=== PATIENT | female | born 1965 | race Caucasian/White ===

== ENCOUNTER → 2019-07-26 12:30 | Outpatient (BNVA) | payer MEDICARE, MEDICAID, SELFPAY | PROVIDERS: Family Provider Nurse Practitioner; PCP Nurse Practitioner; Visit Provider Specialist | DX: M54.2 Cervicalgia (principal); G43.909 Migraine, unspecified, not intractable, without status migrainosus; F31.0 Bipolar disorder, current episode hypomanic; F44.5 Conversion disorder with seizures or convulsions; F60.3 Borderline personality disorder; F17.210 Nicotine dependence, cigarettes, uncomplicated | CPT/HCPCS: 96372; 99215 ==

== ENCOUNTER 2019-08-06 14:37 | Outpatient (CLI) | payer MEDICARE, MEDICAID, SELFPAY ==
--- NOTE | 2019-08-06 14:00 | CT_ITS ---
WS: [id number] CT CERVICAL SPINE HISTORY: neck pain TECHNIQUE: Contiguous 2.5 mm axial imaging performed through the entire cervical spine. Sagittal and coronal reformats also performed. All CT scans at [facility] use at least one of these do se optimization techniques: automated exposure control; mA and/or kV adjustment per patient size (inc ludes targeted exams where dose is matched to clinical indication); or iterative reconstruction. DLP: 673.26 mGy.cm COMPARISON: 08/01/2015 Reversal of the normal cervical lordosis centered at C5. Could be positional or due to spasm. The dis c spaces are very minimally narrowed at C5-6 and C6-7. Small hypertrophic osteophytes from C4 to C7. No fractures. Facet joints are normally aligned. Craniocervical junction is normal. Lateral masses of C1 and C2 are aligned and the odontoid is intact. C2-C3: Very tiny central disc protrusion with no stenosis. C3-C4: Normal. C4-C5: Normal. C5-C6: Small LEFT foraminal osteophyte without stenosis. C6-C7: Vertebral body osteophytes. Very mild narrowing of the LEFT subarticular recess and foramen. C7-T1: Normal. Lung apices are clear. No thyroid nodules. Very small amount of mucoperiosteal thickening in the LEFT sphenoid sinus. Additional mucoperiosteal thickening in the floor the LEFT maxillary sinus is incomp letely visualized. CT/CT cervical spin wo con* [id number] IMPRESSION: 1. Reversal the normal cervical lordosis centered at C5. May be due to spasm o r positioning of the patient. 2. Minimal spondylitic changes, most significant at C5-6 and C6-7. 3. Mild narrowing of the LEFT subarticular recess and foramen at C6-7. 4. No cervical fracture.
== END 2019-08-06 14:38 | disposition home or self-care (01) ==
LOC: RAD 14:43
PROVIDERS: Family Provider Nurse Practitioner; PCP Nurse Practitioner; Visit Provider Specialist
DX: M47.892 Other spondylosis, cervical region (principal); M54.2 Cervicalgia
CPT/HCPCS: 72125

== ENCOUNTER → 2019-09-13 16:10 | Outpatient (BNVA) | payer MEDICARE, MEDICAID, SELFPAY | PROVIDERS: Family Provider Nurse Practitioner; PCP Nurse Practitioner; Visit Provider Nurse Practitioner | DX: R13.10 Dysphagia, unspecified (principal); E11.65 Type 2 diabetes mellitus with hyperglycemia | CPT/HCPCS: 80053; 80061; 81003; 83036; 84443 ==

== ENCOUNTER 2019-09-22 06:42 | Day surgery (SDC) | payer MEDICARE, MEDICAID, SELFPAY ==
[2019-09-21 08:04] VITALS: BMI 37.4
[2019-09-22 07:05] VITALS: BP 121/80; PULSE 101; RESP 16; TEMP 36.6; O2SAT 92
[2019-09-22] MEDS: sodium chloride 0.9% 1,000 ML 30 ML (07:22)
[2019-09-22 07:25] LABS: Glucose Point of Care 288 mg/dL (70-110)
--- NOTE | 2019-09-22 07:42 | ANES.PREANE2 ---
Pre-Anesthetic Assessment Pre-Anesthetic Assessment: Height/Weight: Height 1.63 m Weight 98.883 kg Temp Pulse Resp BP Pulse Ox 97.9 F 101 H 16 121/80 92 09/22/19 07:05 09/22/19 07:05 09/22/19 07:05 09/22/19 07:05 09/22/19 07:05 Preop Diagnosis: Difficulty in swallowing Proposed Procedure: Operation Date: 09/22/19 08:15 Proposed Procedures p EGD 64068 R13.10(Not Applicable) - Benjy Emery MD Familial anesthetic complications: denies Was Beta Nino taken within 24 hours: N/A Last intake: Intake Last Liquid Date 09/21/19 Last Liquid Time 22:00 Last Solid Date 09/21/19 Last Solid Time 18:00 Last Intake: 01:00 Social: Social History: Tobacco and No alcohol Packs per day: 1 Pack years: greater than 40 Exam: Pre-Anes Outpt Exam: alert, oriented x 3 and clear to auscultation bilaterally Airway: Submandibular: WNL Cervical ROM: WNL MP: 2 Dentition: Other Additional comments: dentures out Pulmonary: Pulmonary: Asthma, COPD, Cough and JETT (shortness of breath walking to mail box ) CV/HEM: CV/HEM: Angina (Stable) (anxiety related ), HTN and Palp : : None reported Comments: incontinent Hepatic: Hepatic: Hepatitis GI: GI: GERD and PUD Metabolic: Metabolic: DM, Morbid obesity and Thyroid (nodule ) Musc/skel: Musc/skel: Lower Back Pain (neck pain ) Neuropsych: Neuropsych: Anxiety, Bipolar, Depression, Seizure ( stress induced seixures from PTSD ) and TIA Anesthetic Plan: ASA status: 3 Anesthesia: Anesthesia Evaluation and MAC PFSH Anesthesia PFSH: Social History Smoking and tobacco status: current every day smoker cigarettes Packs smoked per day: 1 Second hand smoke exposure: Yes Smoking risk assessment/counseling performed?: Yes Alcohol intake: never Desire information about alcohol rehabilitation?: No Counseling given: No Desire information about substance/drug rehabilitation?: No Counseling given: No Caregiver/support person: No Lives independently: Yes Household members: other Marital status: / service: No Current occupational status: unemployed History of recent travel: No Current gender identity: Female Data Anesthesia Other Labs: Laboratory Results - last 48 hr 09/22/19 07:21 POC Glucose 288 Cardiac Studies: No Data to Display
--- NOTE | 2019-09-22 07:56 | W.PM.OPSUD ---
Surgery/Procedure H&P Update DATE OF PROCEDURE: September 22, 2019 DATE H&P PERFORMED: 09/20/19 H&P UPDATE INFORMATION: I have reviewed H&P completed within last 30 days, I have examined patient prior to procedure and No changes to prior documentation PREOP DIAGNOSIS: Difficulty in swallowing PRIMARY INDICATION FOR PROCEDURE: The same PLANNED PROCEDURE: Operation Date: 09/22/19 08:15 Proposed Procedures p EGD 30859 R13.10(Not Applicable) - Benjy Emery MD
[2019-09-22 09:06] VITALS: BP 123/74; PULSE 83; RESP 16; TEMP 36.2; O2SAT 97
--- NOTE | 2019-09-22 09:09 | ANE.PACU2 ---
 Inpatient post-anesthesia follow up: Airway intact: Yes Vital signs: Temperature 97.1 F Pulse Rate 83 Respiratory Rate 16 Blood Pressure 123/74 Pulse Oximetry 97 Oxygen Delivery Me thod Aerosol Mask Oxygen Flow Rate 7 Fraction of Inspir ed Oxygen Hydration adequate: Yes Nausea and vomiting: No Pain level: 2 Mental status: Baseline
--- NOTE | 2019-09-22 09:14 | ANE.PACU2 ---
 Inpatient post-anesthesia follow up: Vital signs: Temperature 97.1 F Pulse Rate 83 Respiratory Rate 16 Blood Pressure 123/74 Pulse Oximetry 97 Oxygen Delivery Me thod Aerosol Mask Oxygen Flow Rate 7 Fraction of Inspir ed Oxygen
[2019-09-22 09:15] VITALS: BP 127/81; PULSE 91; RESP 18; O2SAT 92
[2019-09-23 05:53] LABS: H. Pylori / CLO Test Negative
== END 2019-09-22 09:31 | disposition home or self-care (01) ==
PROVIDERS: Family Provider Nurse Practitioner; PCP Nurse Practitioner; Visit Provider Surgery
PROC: 0DJ08ZZ Inspection of Upper Intestinal Tract, Via Natural or Artificial Opening Endoscopic (ICD-10-PCS; CPT 43235; principal; 2019-09-22 08:15)
DX: R13.10 Dysphagia, unspecified (principal); K21.9 Gastro-esophageal reflux disease without esophagitis; K29.70 Gastritis, unspecified, without bleeding; K29.80 Duodenitis without bleeding; I10 Essential (primary) hypertension; E78.5 Hyperlipidemia, unspecified; Z82.49 Family history of ischemic heart disease and other diseases of the circulatory system; F17.210 Nicotine dependence, cigarettes, uncomplicated; J44.9 Chronic obstructive pulmonary disease, unspecified; Z87.11 Personal history of peptic ulcer disease; E66.01 Morbid (severe) obesity due to excess calories; Z68.37 Body mass index [BMI] 37.0-37.9, adult
CPT/HCPCS: 12345; 36416; 43239; 82962; 87077; J2250; J2704; J7030

== ENCOUNTER 2019-10-18 09:05 | Outpatient (CLI) | payer MEDICARE, MEDICAID, SELFPAY ==
--- NOTE | 2019-10-18 09:13 | FL_ITS ---
NOTE: Report was unsigned for reason: Order was edited. Original Signature date and time was: 10/21/19 1018 WS: [id number] Single CONTRAST UPPER GI EXAMINATION HISTORY: DYSPHAGIA COMPARISON: 12/09/2018 FLUOROSCOPY TIME: 2.7 minutes. Surface To Air Weapons Officer film reveals normal distribution of gas throughout the GI tract. No suspicious masses or calcifications. Barium mixture traversed normally throughout the esophagus. No filling defects within the stomach. Duodenal bulb was normally distensible and pliable. No gastroesophageal reflux No hiatal hernia was demonstrated on this exam. [facility] upper GI w air [id number] IMPRESSION: Normal upper GI examination.
== END 2019-10-18 09:06 | disposition home or self-care (01) ==
PROVIDERS: Family Provider Nurse Practitioner; PCP Nurse Practitioner; Visit Provider Surgery
DX: R13.10 Dysphagia, unspecified (principal)
CPT/HCPCS: 74240; 74246

== ENCOUNTER 2019-12-31 10:26 | Outpatient (CLI) | payer MEDICARE, MEDICAID, SELFPAY ==
[2019-12-31] MEDS: iohexol 300 mg/mL 50 mL Btl PO (11:07)
--- NOTE | 2019-12-31 11:30 | CT_ITS ---
WS: [id number] CT ABDOMEN PELVIS TECHNIQUE: Contrast-enhanced CT of the abdomen and pelvis with coronal and sagittal reformatted image s. CLINICAL INFORMATION: left flank pain COMPARISON: None. DLP: 1107.[address] scans at [facility] use at least one of these dose optimization techniques: automat ed exposure control; mA and/or kV adjustment per patient size (includes targeted exams where dose is matched to clinical indication); or iterative reconstruction. FINDINGS: Prior postoperative changes hysterectomy and appendectomy. Hepatomegaly with diffuse fatty infiltrati on of the liver. Normal spleen. Normal GE junction. Lung bases are well aerated. Adrenal glands are normal. Normal visualized pancreas. Normal renal parenchymal enhancement. No hydro nephrosis. Gallbladder is contracted. Portal vein and splenic vein are patent. Normal caliber abdomin al aorta. No abdominal or periaortic lymphadenopathy. No pelvic or inguinal lymphadenopathy. Normal caliber abdominal aorta. No evidence of small or large bowel obstruction. No free fluid in the pelvis. Normal lumbar spine. CT/CT abdomen pelvis w con* [id number] IMPRESSION: 1. Hepatomegaly with diffuse fatty infiltration. 2. Gallbladder is contracted. 3. No abdominal lymphadenopathy. Normal caliber abdominal aorta. 4. No hydronephrosis. 5. No abdominal or pelvic lymphadenopathy. 6. Prior hysterectomy and appendectomy. 7. No other significant findings.
== END 2019-12-31 10:27 | disposition home or self-care (01) ==
LOC: RADWPI 10:31
PROVIDERS: Family Provider Nurse Practitioner; PCP Nurse Practitioner; Visit Provider Nurse Practitioner
DX: R10.9 Unspecified abdominal pain (principal); K76.0 Fatty (change of) liver, not elsewhere classified
CPT/HCPCS: 74177; Q9967

== ENCOUNTER → 2020-04-27 16:26 | Outpatient (BNVA) | payer MEDICARE, MEDICAID, SELFPAY | PROVIDERS: Family Provider Nurse Practitioner; PCP Nurse Practitioner; Visit Provider Nurse Practitioner | DX: E11.65 Type 2 diabetes mellitus with hyperglycemia (principal); Z79.4 Long term (current) use of insulin | CPT/HCPCS: 80053; 80061; 81000; 83036; 85025 ==

== ENCOUNTER → 2020-11-02 13:59 | Outpatient (BNVA) | payer MEDICARE, MEDICAID, SELFPAY | PROVIDERS: Family Provider Nurse Practitioner; PCP Nurse Practitioner; Visit Provider Nurse Practitioner | DX: J44.9 Chronic obstructive pulmonary disease, unspecified (principal); I10 Essential (primary) hypertension; K58.9 Irritable bowel syndrome, unspecified; S41.109A Unspecified open wound of unspecified upper arm, initial encounter; F41.9 Anxiety disorder, unspecified; F32.9 Major depressive disorder, single episode, unspecified; M54.2 Cervicalgia; E78.2 Mixed hyperlipidemia; F51.5 Nightmare disorder; F43.10 Post-traumatic stress disorder, unspecified; R10.13 Epigastric pain; K29.70 Gastritis, unspecified, without bleeding; E11.65 Type 2 diabetes mellitus with hyperglycemia; Z79.4 Long term (current) use of insulin; F44.5 Conversion disorder with seizures or convulsions; X58.XXXA Exposure to other specified factors, initial encounter | CPT/HCPCS: 80053; 80061; 83036; 83721; 85025 ==

== ENCOUNTER 2020-11-30 12:02 | Outpatient (CLI) | payer MEDICARE, MEDICAID, SELFPAY ==
--- NOTE | 2020-11-30 12:00 | USCV_ITS ---
Cori Ramirez Age: 55 Gender: F : 1965 Exam Date: 11/30/2020 12:48 Ordering Phys: Pedro Luis Mata Technologist: BRENDAN [place] [facility] [place]: Pain swelling, other specified soft tissue disorders HISTORY: Right lower extremity pain and swelling. PROCEDURES: Venous duplex imaging was performed in only the right lower extremity. The following venous structures were evaluated: common femoral vein, profunda vein, proximal portion of the greater saphenous vein, superficial femoral vein, and the popliteal vein. Serial compression, augmentation maneuvers, and spectral Doppler flow evaluation were performed. FINDINGS: No evidence of DVT seen in any vessel visualized at this time. CONCLUSIONS No evidence of right lower extremity DVT. Petar Moss MD (Electronically Signed) Final Date: 30 Nov 2020 16:38 S
--- NOTE | 2020-11-30 12:45 | XRR_ITS ---
PROCEDURE INFORMATION: Exam: XR Right Tibia and Fibula Exam date and time: 11/30/2020 12:37 PM Age: 55 years old Clinical indication: Swelling or effusion of joint; Other: Tib fib; Additional info: M79.89 - other specified soft tissue disorders TECHNIQUE: Imaging protocol: XR Right tibia and fibula. Views: 2 views. COMPARISON: No relevant prior studies available. FINDINGS: Bones/joints: Normal. Soft tissues: Normal. XR/XR tibia fibula RT 2V [id number] IMPRESSION: No acute findings.
[2020-11-30 13:23] LABS: Basophils # 0.1 10^3/uL (0.0-0.1); Basophils % 0.5 %; Eosinophils # 0.5 10^3/uL (0.0-0.8); Eosinophils % 4.1 %; Hematocrit 48.6 % (37.0-47.0); Hemoglobin 15.3 g/dL (11.5-15.3); Lymphocytes # 2.4 10^3/uL (0.8-4.8); Mean Corpuscular HGB Conc 31.5 g/dL (30.0-36.0); Mean Corpuscular Hemoglobin 30.1 pg (28.0-34.0); Mean Corpuscular Volume 95.7 fL (81-99); Mean Platelet Volume 11.2 fL (7.4-10.4); Monocytes # 0.8 10^3/uL (0.2-0.9); Monocytes % 5.8 %; Neutrophils # 9.31 10^3/uL (1.8-7.7); Neutrophils % 71.2 %; Nucleated Red Blood Cells % 0 %; Platelet Count 232 10^3/cmm (130-400); Red Blood Count 5.08 10^6/uL (4.1-5.3); Red Cell Distribution Width 12.6 % (12.1-15.1); White Blood Count 13.1 10^3/uL (4.0-10.0)
[2020-11-30 13:46] LABS: Alanine Aminotransferase 46 U/L (0-33); Albumin Level 3.7 g/dL (3.5-5.2); Alkaline Phosphatase 178 IU/L (35-105); Anion Gap 13.5 (5-19); Aspartate Amino Transferase 27 U/L (0-32); Blood Urea Nitrogen 8 mg/dL (6-20); Calcium 8.5 mg/dL (8.5-10.5); Carbon Dioxide 30 mmol/L (22-29); Chloride 101 mmol/L (98-107); Globulin 3.3 g/dL (1.3-4.6); Glucose 383 mg/dL (65-115); Osmolality Calculated 304 mOsm/kg (285-295); Potassium 4.5 mmol/L (3.5-5.1); Sodium 140 mmol/L (136-145); Total Bilirubin 0.3 mg/dL (0.15-1.2)
== END 2020-11-30 12:03 | disposition home or self-care (01) ==
PROVIDERS: PCP Nurse Practitioner; Visit Provider Nurse Practitioner
DX: M79.89 Other specified soft tissue disorders (principal); M79.661 Pain in right lower leg
CPT/HCPCS: 36415; 73590; 80053; 85025; 93971

== ENCOUNTER 2020-12-14 15:39 | Emergency (ER) | payer MEDICARE, MEDICAID, SELFPAY ==
[2020-12-14] VITALS (10 sets, daily range): BP systolic 144–177; BP diastolic 90–110; PULSE 86–105; RESP 17–22; TEMP 36.3; O2SAT 90–98; BMI 34.3
--- NOTE | 2020-12-14 18:23 | XRR_ITS ---
PROCEDURE INFORMATION: Exam: XR Chest Exam date and time: 12/14/2020 6:27 PM Age: 55 years old Clinical indication: Angina; Additional info: Reduced breath sounds TECHNIQUE: Imaging protocol: XR of the chest. Views: 1 view. COMPARISON: CR Chest 1 [place] [id number] 11/27/2016 6:56 PM FINDINGS: Lungs: Mild emphysematous lung changes. Mild hyperinflation pattern. No focal airspace consolidation. Mild reticular interstitial lung change stable from prior. Pleural spaces: Unremarkable. No pleural effusion. No pneumothorax. Heart/Mediastinum: Unremarkable. No cardiomegaly. Bones/joints: Unremarkable. XR/XR chest 1V portable [id number] IMPRESSION: Emphysematous lung changes. Suspect underlying COPD. No focal pneumonia identified.
--- NOTE | 2020-12-14 18:25 | ECG_ITS ---
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 Measurements Intervals [place] Rate: 86 P: 74 MO: 125 QRS: 81 QRSD: 93 T: 53 QT: 378 QTc: 453 Interpretive Statements SINUS RHYTHM POSSIBLE RIGHT ATRIAL ENLARGEMENT [0.25mV P WAVE] POSSIBLE LEFT ATRIAL ENLARGEMENT [-0.1mV P WAVE IN V1/V2] POSSIBLE INFERIOR MYOCARDIAL INFARCTION [30 ms Q WAVE IN II/aVF], PROBABLY OLD Compared to ECG 11/27/2016 18:19:12 Myocardial infarct finding now present Electronically Signed On 12-14-2020 20:28:07 CDT by Galileo Peterson M.D. [id number]
[2020-12-14] MEDS: ipratropium-albuterol 3 mL Neb INHALATION (18:52)
[2020-12-14 18:56] LABS: Glucose Point of Care 368 mg/dL (70-110)
[2020-12-14 19:48] LABS: Basophils # 0.1 10^3/uL (0.0-0.1); Basophils % 0.7 %; Eosinophils # 0.3 10^3/uL (0.0-0.8); Eosinophils % 2.8 %; Lymphocytes # 2.7 10^3/uL (0.8-4.8); Lymphocytes % 22.2 %; Mean Corpuscular HGB Conc 33.3 g/dL (30.0-36.0); Mean Corpuscular Hemoglobin 30.4 pg (28.0-34.0); Mean Corpuscular Volume 91.3 fL (81-99); Mean Platelet Volume 11.5 fL (7.4-10.4); Monocytes # 0.6 10^3/uL (0.2-0.9); Monocytes % 4.5 %; Neutrophils % 69.3 %; Nucleated Red Blood Cells % 0 %; Platelet Count 248 10^3/cmm (130-400); Red Blood Count 4.93 10^6/uL (4.1-5.3); Red Cell Distribution Width 12.6 % (12.1-15.1); White Blood Count 12.3 10^3/uL (4.0-10.0)
[2020-12-14 20:15] LABS: Troponin(5th) Baseline 6 ng/L (0-10)
[2020-12-14 20:15] LABS: Add Urine Microscopic? NO; Charge for UA Resulting for Rev
[2020-12-14 20:22] LABS: Alanine Aminotransferase 52 U/L (0-33); Albumin Level 4.2 g/dL (3.5-5.2); Alkaline Phosphatase 180 IU/L (35-105); Anion Gap 14.1 (5-19); Aspartate Amino Transferase 25 U/L (0-32); Blood Urea Nitrogen 8 mg/dL (6-20); Calcium 8.6 mg/dL (8.5-10.5); Carbon Dioxide 28 mmol/L (22-29); Chloride 99 mmol/L (98-107); Glomerular Filtration Rate 164.5 mL/min (90-130); Glucose 337 mg/dL (65-115); NT Pro B Type Natriuretic Pept 114 pg/mL (0-125); Osmolality Calculated 296 mOsm/kg (285-295); Potassium 4.1 mmol/L (3.5-5.1); Sodium 137 mmol/L (136-145); Total Bilirubin 0.3 mg/dL (0.15-1.2); Total Protein 7.2 g/dL (6.6-8.7)
[2020-12-14 20:22] LABS: Bilirubin Urine Neg (Negative); Blood Urine Neg (Negative); Glucose Urine UA 4+ (Normal); Ketones Urine Negative (Negative); Leukocyte Esterase Urine Negative (Negative); Nitrate Urine Negative (Negative); Protein Urine Neg (Negative); Specific Gravity, Urine 1.015 (1.005-1.030); Urine Appearance Clear (CLEAR); Urine Color Yellow (Yellow); Urobilinogen Urine Norm (Negative); pH Urine 5 (5-7)
--- NOTE | 2020-12-14 20:25 | ECG_ITS ---
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
[2020-12-14 20:57] LABS: Lactate (Lactic Acid level) 1.4 mmol/L (0.5-2.2)
[2020-12-14] MEDS: LORazepam 2 mg/mL INJ 1 mL IVP (21:01)
[2020-12-14 21:16] LABS: D Dimer 0.33 ug/mIFEU (0-0.59)
[2020-12-14] MEDS: FUROsemide 10 mg/mL SDV 4mL 40 MG IVP (21:32)
[2020-12-14] MEDS: acetaminophen 325 mg Tablet 650 MG PO (21:35)
[2020-12-14] MEDS: morphine 4 mg/mL SDV 1 mL 2 MG IVP (21:44)
[2020-12-14 22:20] LABS: Troponin 5 2HR Delta 0 ABS# (0-10)
--- NOTE | 2020-12-14 23:12 | ED_ITS ---
HPI - General Adult General: Chief complaint: General Medical Stated complaint: multiple complaints Time Seen by Provider: 12/14/20 18:08 History of Present Illness: HPI narrative: The patient is a 55-year-old female with past medical history diabetes, COPD who comes to the ER with a multitude of complaints. She says she has been prescribed multiple different antibiotics for the spots on her belly. She has by appearance had multiple episodes of folliculitis which have resolved and have a hyperpigmentation left from the scarring. There is no active infection there. She also complains of headache, swelling to her ankles, palpitations, increased anxiety. Every time she is asked a different complaint is received. It is difficult to tell what exactly she is here for though it appears her most pressing complaint is she is concerned about the spots on her belly which appear to be healed. Associated symptoms: Deny chest pain, confusion, dyspnea, headache(s), rash or palpitations Review of Systems General: Reports: 10 or more systems reviewed and unremarkable except in HPI and below Const: Denies: fatigue Eyes: Denies: change in vision, blurry vision or eye redness ENMT: Denies: throat pain, swelling of lips/tongue, ear or mastoid pain or nasal congestion Card: Denies: chest pain, palpitations, irregular heart rhythm, edema, dyspnea on exertion or orthopnea Resp: Denies: dyspnea, productive cough or non-productive cough GI: Denies: abdominal pain, diarrhea or GI cramping : Denies: flank pain, difficulty voiding, urinary frequency or urinary urgency Musc: Denies: neck pain, back pain, extremity pain, joint pain, joint redness, limited range of motion or muscle weakness Skin/Breast: Denies: rash, pruritus, erythema, skin pain or skin tenderness Neuro: Denies: headache(s), numbness in extremities, weakness in extremities, sensory changes, difficulty walking, dizziness, confusion or Slurred speech present Psych: Denies: anxiety or depression Endo: Denies: polyuria All/Imm: Denies: urticaria, throat swelling or tongue swelling PFSH ED PFSH: Medical History Anxiety and depression Benign hypertension Chronic neck pain Controlled type 2 diabetes mellitus with hyperglycemia, with long-term current use of insulin COPD (chronic obstructive pulmonary disease) Dysphagia Epigastric pain Hyperlipidemia, unspecified Nightmares associated with chronic post-traumatic stress disorder Surgical History History of appendectomy History of hysterectomy for cancer Family History Other Cancer Heart disease Hypertension Stroke Denies family history of Anesthesia complication Bleeding disorder Social History Smoking and tobacco status: current every day smoker cigarettes Packs smoked per day: 1 Second hand smoke exposure: Yes Smoking risk assessment/counseling performed?: Yes Alcohol intake: never Desire information about alcohol rehabilitation?: No Counseling given: No Desire information about substance/drug rehabilitation?: No Counseling given: No Caregiver/support person: No Lives independently: Yes Household members: other Marital status: / service: No Current occupational status: unemployed History of recent travel: No Current gender identity: Female Physical Exam Const: COMMON NORMALS: no acute distress, average body habitus, patient oriented x3, no limitations, healthy appearing, alert and well nourished GENERAL APPEARANCE: cooperative, comfortable, well kempt and well developed ORIENTATION/CONSCIOUSNESS: Yes awake, Yes oriented to person, Yes oriented to place and Yes oriented to time HENMT: COMMON NORMALS: normocephalic, external ears normal and Normal external nose present HEAD & SCALP: normal to inspection and normocephalic NOSE: Normal external nose present EXTERNAL EAR: Yes external ears normal MOUTH: Normal oral and palatal mucosa present THROAT: posterior oropharynx normal Eye: COMMON NORMALS: Equal, round and reactive pupils present and EOMs intact bilaterally GENERAL EYE: appearance normal, both eyes and all related structures PUPIL: Yes Equal, round and reactive pupils present Neck/C-Spine: COMMON NORMALS: full ROM, no lymphadenopathy, no meningeal signs and no JVD GENERAL: Yes normal visual inspection Lymph: LYMPHATIC: no lymphadenopathy noted Chest: COMMONS NORMALS: normal inspection of the chest and normal palpation of entire chest wall Resp: COMMON NORMALS: normal respiratory effort, No retractions, No use of accessory muscles, clear to auscultation bilaterally and percussion normal EFFORT & INSPECTION: Yes able to speak in complete sentences AUSCULTATION: clear to auscultation bilaterally PERCUSSION: percussion normal Cardio: COMMON NORMALS: no JVD, regular rate, regular rhythm, S1 normal heart sound present, S2 normal heart sound present and Peripheral pulses 2+ throughout RATE: regular rate RHYTHM: regular rhythm HEART SOUNDS: S1 normal heart sound present and S2 normal heart sound present PERIPHERAL PULSES: Peripheral pulses 2+ throughout GI: COMMON NORMALS: Normal to inspection, nondistended, normoactive bowel sounds present, Soft to palpation, non-tender and no masses INSPECTION: Yes normal to inspection PALPATION: Yes Soft to palpation : COMMON NORMALS: Yes no CVA tenderness BLADDER/KIDNEY EXAM: Yes no CVA tenderness Back/Pelvis: COMMON NORMALS: no CVA tenderness, thoracic and lumbar spine normal to inspection, no thoracic nor lumbar tenderness and thoraco-lumbar ROM normal Extremity: COMMON NORMALS: normal to inspection, full ROM, capillary refill normal, no joint enlargement and no pedal edema GENERAL: Yes normal exam except as noted Neuro: COMMON NORMALS: patient oriented x3, CN's II-XII intact bilaterally, moves all extremities, no focal motor deficits, no sensory deficits noted and gait normal SENSORIUM/ORIENTATION: Yes alert, Yes oriented to person, Yes oriented to place and Yes oriented to time MENINGEAL SIGNS: Yes no meningeal signs Psych: COMMON NORMALS: mental status grossly normal, Normal thought process present, cooperative, normal affect and speech normal APPEARANCE: Yes well kempt ATTITUDE: Yes calm SPEECH: Yes normal speech THOUGHT PROCESS: Normal thought process present Skin: COMMON NORMALS: no rashes or lesions noted GENERAL SKIN EXAM: no rashes or lesions noted Course Vital Signs: Vital signs: Vital Signs Temperature 97.3 F L 12/14/20 16:20 Pulse Rate 86 12/14/20 23:23 Respiratory Rate 21 H 12/14/20 23:00 Blood Pressure 144/90 12/14/20 23:23 Pulse Oximetry 93 12/14/20 23:23 MDM - General Adult MDM Narrative: Medical decision making narrative: The patient came in with many different vague complaints. Labs were mostly normal except mild elevated glucose 337. She was given insulin with good reduction. She did have a pseudoseizure while she was here and given Ativan. She quickly normalized and was discharged. Recommended follow-up with primary care physician in a couple days and ER with worsening symptoms. Lab Data: Labs: Lab Results 12/14/20 12/14/20 12/14/20 Range/Units 18:20 19:25 19:25 WBC 12.3 H (4.0-10.0) 10^3/ uL RBC 4.93 (4.1-5.3) 10^6/u L Hgb 15.0 (11.5-15.3) g/dL Hct 45.0 (37.0-47.0) % MCV 91.3 (81-99) fL MCH 30.4 (28.0-34.0) pg MCHC 33.3 (30.0-36.0) g/dL RDW 12.6 (12.1-15.1) % Plt Count 248 (130-400) 10^3/c mm MPV 11.5 H (7.4-10.4) fL Neut % (Auto) 69.3 % Lymph % (Auto) 22.2 % Canadian % (Auto) 4.5 % Eos % (Auto) 2.8 % Baso % (Auto) 0.7 % Neut # (Auto) 8.50 H (1.8-7.7) 10^3/u L Lymph # (Auto) 2.7 (0.8-4.8) 10^3/u L Canadian # (Auto) 0.6 (0.2-0.9) 10^3/u L Eos # (Auto) 0.3 (0.0-0.8) 10^3/u L Baso # (Auto) 0.1 (0.0-0.1) 10^3/u L Nucleated RBC % (a uto) 0 % Nucleated RBCs # 0.0 /100WBC D-Dimer (0-0.59) ug/mIFE U Sodium 137 (136-145) mmol/L Potassium 4.1 (3.5-5.1) mmol/L Chloride 99 (98-107) mmol/L Carbon Dioxide 28 (22-29) mmol/L Anion Gap 14.1 (5-19) BUN 8 (6-20) mg/dL Creatinine 0.4 L (0.5-0.9) mg/dL GFR Calculation 164.5 H (90-130) mL/min Glucose 337 H (65-115) mg/dL POC Glucose 368 H (70-110) mg/dL Calculated Osmolal ity 296 H (285-295) mOsm/k g Lactate (0.5-2.2) mmol/L Calcium 8.6 (8.5-10.5) mg/dL Total Bilirubin 0.3 (0.15-1.2) mg/dL AST 25 (0-32) U/L ALT 52 H (0-33) U/L Alkaline Phosphata se 180 H (35-105) IU/L Troponin T Baselin e (0-10) ng/L Troponin T 120 Min [place] (0-10) ng/L Delta Troponin T (0-10) ABS# NT-Pro-B Natriuret Pep 114 (0-125) pg/mL Total Protein 7.2 (6.6-8.7) g/dL Albumin 4.2 (3.5-5.2) g/dL Globulin 3.0 (1.3-4.6) g/dL Urine Color (Yellow) Urine Appearance (CLEAR) Urine pH (5-7) Ur Specific Gravit y (1.005-1.030) Urine Protein (Negative) Urine Glucose (UA) (Normal) Urine Ketones (Negative) Urine Blood (Negative) Urine Nitrate (Negative) Urine Bilirubin (Negative) Urine Urobilinogen (Negative) mg/dL Ur Leukocyte Ingrid ase (Negative) 12/14/20 12/14/20 12/14/20 Range/Units 19:25 20:12 20:28 WBC (4.0-10.0) 10^3/ uL RBC (4.1-5.3) 10^6/u L Hgb (11.5-15.3) g/dL Hct (37.0-47.0) % MCV (81-99) fL MCH (28.0-34.0) pg MCHC (30.0-36.0) g/dL RDW (12.1-15.1) % Plt Count (130-400) 10^3/c mm MPV (7.4-10.4) fL Neut % (Auto) % Lymph % (Auto) % Canadian % (Auto) % Eos % (Auto) % Baso % (Auto) % Neut # (Auto) (1.8-7.7) 10^3/u L Lymph # (Auto) (0.8-4.8) 10^3/u L Canadian # (Auto) (0.2-0.9) 10^3/u L Eos # (Auto) (0.0-0.8) 10^3/u L Baso # (Auto) (0.0-0.1) 10^3/u L Nucleated RBC % (a uto) % Nucleated RBCs # /100WBC D-Dimer 0.33 (0-0.59) ug/mIFE U Sodium (136-145) mmol/L Potassium (3.5-5.1) mmol/L Chloride (98-107) mmol/L Carbon Dioxide (22-29) mmol/L Anion Gap (5-19) BUN (6-20) mg/dL Creatinine (0.5-0.9) mg/dL GFR Calculation (90-130) mL/min Glucose (65-115) mg/dL POC Glucose (70-110) mg/dL Calculated Osmolal ity (285-295) mOsm/k g Lactate (0.5-2.2) mmol/L Calcium (8.5-10.5) mg/dL Total Bilirubin (0.15-1.2) mg/dL AST (0-32) U/L ALT (0-33) U/L Alkaline Phosphata se (35-105) IU/L Troponin T Baselin e 6 (0-10) ng/L Troponin T 120 Min [place] (0-10) ng/L Delta Troponin T (0-10) ABS# NT-Pro-B Natriuret Pep (0-125) pg/mL Total Protein (6.6-8.7) g/dL Albumin (3.5-5.2) g/dL Globulin (1.3-4.6) g/dL Urine Color Yellow (Yellow) Urine Appearance Clear (CLEAR) Urine pH 5 (5-7) Ur Specific Gravit y 1.015 (1.005-1.030) Urine Protein Neg (Negative) Urine Glucose (UA) 4+ H (Normal) Urine Ketones Negative (Negative) Urine Blood Neg (Negative) Urine Nitrate Negative (Negative) Urine Bilirubin Neg (Negative) Urine Urobilinogen Norm (Negative) mg/dL Ur Leukocyte Ingrid ase Negative (Negative) 12/14/20 12/14/20 Range/Units 20:28 21:52 WBC (4.0-10.0) 10^3/ uL RBC (4.1-5.3) 10^6/u L Hgb (11.5-15.3) g/dL Hct (37.0-47.0) % MCV (81-99) fL MCH (28.0-34.0) pg MCHC (30.0-36.0) g/dL RDW (12.1-15.1) % Plt Count (130-400) 10^3/c mm MPV (7.4-10.4) fL Neut % (Auto) % Lymph % (Auto) % Canadian % (Auto) % Eos % (Auto) % Baso % (Auto) % Neut # (Auto) (1.8-7.7) 10^3/u L Lymph # (Auto) (0.8-4.8) 10^3/u L Canadian # (Auto) (0.2-0.9) 10^3/u L Eos # (Auto) (0.0-0.8) 10^3/u L Baso # (Auto) (0.0-0.1) 10^3/u L Nucleated RBC % (a uto) % Nucleated RBCs # /100WBC D-Dimer (0-0.59) ug/mIFE U Sodium (136-145) mmol/L Potassium (3.5-5.1) mmol/L Chloride (98-107) mmol/L Carbon Dioxide (22-29) mmol/L Anion Gap (5-19) BUN (6-20) mg/dL Creatinine (0.5-0.9) mg/dL GFR Calculation (90-130) mL/min Glucose (65-115) mg/dL POC Glucose (70-110) mg/dL Calculated Osmolal ity (285-295) mOsm/k g Lactate 1.4 (0.5-2.2) mmol/L Calcium (8.5-10.5) mg/dL Total Bilirubin (0.15-1.2) mg/dL AST (0-32) U/L ALT (0-33) U/L Alkaline Phosphata se (35-105) IU/L Troponin T Baselin e (0-10) ng/L Troponin T 120 Min [place] 6.00 (0-10) ng/L Delta Troponin T 0 (0-10) ABS# NT-Pro-B Natriuret Pep (0-125) pg/mL Total Protein (6.6-8.7) g/dL Albumin (3.5-5.2) g/dL Globulin (1.3-4.6) g/dL Urine Color (Yellow) Urine Appearance (CLEAR) Urine pH (5-7) Ur Specific Gravit y (1.005-1.030) Urine Protein (Negative) Urine Glucose (UA) (Normal) Urine Ketones (Negative) Urine Blood (Negative) Urine Nitrate (Negative) Urine Bilirubin (Negative) Urine Urobilinogen (Negative) mg/dL Ur Leukocyte Ingrid ase (Negative) Discharge Plan Discharge Patient Disposition: Home Clinical Impression: Hyperglycemia Condition: Stable Prescriptions: No Action hydroxyzine pamoate 25 mg capsule 25 mg PO TID PRN (Reason: Itching) RF: 0 (DME) nebulizers Misc See Rx Instructions .ROUTE .MEDSUPPLY Qty: 1 RF: 0 melatonin 10 mg capsule 10 mg PO BEDTIME@2200 RF: 0 ascorbic acid (vitamin C) [Vitamin C] 1,000 mg tablet 1 gm PO DAILY@0700 RF: 0 (DME) ReliOn Prime Test Strips Strip See Rx Instructions .ROUTE .MEDSUPPLY Qty: 100 RF: 5 (DME) pen needle, diabetic 33 gauge x 5/32 needle See Rx Instructions .ROUTE .MEDSUPPLY Qty: 200 RF: 5 meclizine 25 mg tablet 25 mg PO TID PRN (Reason: Nausea) Qty: 90 RF: 2 insulin aspart U-100 [Novolog Flexpen U-100 Insulin] 100 unit/mL (3 mL) insulin pen See Rx Instructions SUBCUT TID Qty: 15 RF: 2 docusate sodium [Colace] 100 mg capsule 100 mg PO DAILY PRN (Reason: Constipation) Qty: 60 RF: 2 albuterol sulfate [Ventolin HFA] 90 mcg/actuation HFA aerosol inhaler 2 puff INHALATION Q6H PRN (Reason: Shortness Of Breath) Qty: 18 RF: 2 albuterol sulfate 2.5 mg /3 mL (0.083 %) solution for nebulization 2.5 mg INHALATION Q4H PRN (Reason: Shortness Of Breath) Qty: 180 RF: 2 MediHoney (honey) 100 % paste 1 applic topical BID Qty: 103 RF: 5 (DME) lancets [ReliOn Ultra Thin Plus Lancets] Misc See Rx Instructions .ROUTE .MEDSUPPLY Qty: 100 RF: 5 (DME) relion machine See Rx Instructions .Route .MEDSUPPLY Qty: 1 RF: 0 multivitamin [Multiple Vitamins] Tablet 1 tab PO DAILY@0700 RF: 0 Hair, Skin, Nails with Biotin 7.5-7.5-1,250 mg-unit-mcg Tablet,Chewable 1 tab PO DAILY@0700 RF: 0 prazosin 1 mg capsule 1 mg PO BEDTIME@2199 RF: 0 Zoloft 100 mg tablet 100 mg PO DAILY@0700 RF: 0 Klonopin 1 mg tablet 1 mg PO BID@0700,2199 RF: 0 penicillin V potassium 500 mg tablet 500 mg PO BID@0700,2199 RF: 0 zonisamide 100 mg capsule 100 mg PO TID@,, RF: 0 omeprazole 20 mg capsule,delayed release(DR/EC) 20 mg PO BID@0700,2199 RF: 0 furosemide 20 mg tablet 20 mg PO DAILY@07 RF: 0 Benicar 20 mg tablet 20 mg PO DAILY@699 RF: 0 Crestor 40 mg tablet 40 mg PO DAILY@2199 RF: 0 Symbicort 160-4.5 mcg/actuation HFA aerosol inhaler 2 puff INHALATION BID@699,2199 RF: 0 Daliresp 500 mcg tablet 500 mcg PO DAILY@2199 RF: 0 Tresiba FlexTouch U-100 100 unit/mL (3 mL) insulin pen 30 unit SUBCUT BID@0700,2199 RF: 0 Discharge Orders: Discharge ED (Routine); Ordered 12/14/20 Ordered By: Canelo Tao Referrals: Pedro Luis Mata, [facility] [Primary Care Provider] - Discharge Diet: Advance as tolerated Discharge Activity: Resume usual activity Patient Instructions: Hyperglycemia, Opioid Safety Activity Restrictions/Additional Instructions: He has come to the ER with multiple complaints. High blood sugar, headache, shortness of breath. We have done a large work-up which is mostly normal. He also had a pseudoseizure while you were here and were given Ativan. You are now back to your baseline and your symptoms have improved and we have not found any labs of significance or imaging findings that require treatment. Please continue to watch what you eat and check your glucose frequently. Call your primary care physician tomorrow for a follow-up and return to the ER with worsening symptoms at any time. Coding Level of Care Code ED Transplant Immunologist for Kota Neeyl
== END 2020-12-14 23:24 | disposition home or self-care (01) ==
PROVIDERS: Emergency Provider Family Medicine; PCP Nurse Practitioner
DX: E11.65 Type 2 diabetes mellitus with hyperglycemia (principal); Z79.4 Long term (current) use of insulin; I10 Essential (primary) hypertension; J44.9 Chronic obstructive pulmonary disease, unspecified; E78.5 Hyperlipidemia, unspecified; F17.210 Nicotine dependence, cigarettes, uncomplicated
CPT/HCPCS: 36416; 71045; 80053; 81003; 82962; 83605; 83880; 84484; 85025; 85378; 93005; 94640; 96361; 96372; 96374; 96375; 99284; J1815; J1940; J2060; J2270

== ENCOUNTER → 2021-03-07 15:31 | Outpatient (BNVA) | payer MEDICARE, MEDICAID, SELFPAY | PROVIDERS: PCP Nurse Practitioner; Visit Provider Nurse Practitioner | DX: E11.65 Type 2 diabetes mellitus with hyperglycemia (principal); Z79.4 Long term (current) use of insulin; E78.2 Mixed hyperlipidemia | CPT/HCPCS: 80053; 80061; 83036; 84443 ==

== ENCOUNTER → 2021-05-03 12:38 | Outpatient (BNVA) | payer MEDICARE, MEDICAID, SELFPAY | PROVIDERS: PCP Nurse Practitioner; Visit Provider Nurse Practitioner | DX: E11.65 Type 2 diabetes mellitus with hyperglycemia (principal); Z79.4 Long term (current) use of insulin | CPT/HCPCS: 80053; 80061; 83036; 84443 ==

== ENCOUNTER 2021-08-13 08:34 | Outpatient (CLI) | payer MEDICARE, MEDICAID, SELFPAY ==
--- NOTE | 2021-08-13 08:54 | US_ITS ---
WS: [id number] ULTRASOUND THYROID TECHNIQUE: Ultrasound of the thyroid. CLINICAL INFORMATION: ENLARGED THYROID COMPARISON: None. FINDINGS: Thyroid: Mild thyroid enlargement. Right lobe slightly larger than the left. Right lobe volume 5.7 cc and left lobe volume 3.9 cc. Right thyroid lobe: 4.2 cm x 1.7 cm x 1.5 cm No nodules right thyroid lobe. Left thyroid lobe: 3.7 cm x 1.0 cm x 2.0 cm. Small cyst superior left thyroid lobe measuring 4.2 x 3.5 mm Isthmus: 0.4 mm. Cervical lymphadenopathy: None. US/US thyroid [id number] IMPRESSION: 1. Mild thyroid enlargement. 2. Small incidental cyst superior left thyroid measuring 4.2 x 3.5 mm. 3. No suspicious nodules.
== END 2021-08-13 08:35 | disposition home or self-care (01) ==
PROVIDERS: PCP Nurse Practitioner; Visit Provider Nurse Practitioner
DX: E04.9 Nontoxic goiter, unspecified (principal); E04.1 Nontoxic single thyroid nodule
CPT/HCPCS: 76536

== ENCOUNTER 2021-10-10 08:57 | Outpatient (CLI) | payer MEDICARE, MEDICAID, SELFPAY ==
--- NOTE | 2021-10-10 09:14 | CT_ITS ---
WS: [id number] CT ABDOMEN PELVIS TECHNIQUE: Noncontrast CT of the abdomen and pelvis with coronal and sagittal reformatted images. CLINICAL INFORMATION: R10.13 - Epigastric pain COMPARISON: December 31, 2019 DLP: 1649.[address] scans at [facility] use at least one of these dose optimization techniques: automated e xposure control; mA and/or kV adjustment per patient size (includes targeted exams where dose is matc hed to clinical indication); or iterative reconstruction. FINDINGS: Hepatomegaly diffuse fatty infiltration. Prior hysterectomy and appendectomy. Normal GE junction. Spl enic granulomas. Noncontrast pancreas appears normal. Normal caliber abdominal aorta. Mild aortic serina cification. Lung bases are well aerated. Slight atelectasis in the RIGHT middle lobe. Adrenal glands are normal. No hydronephrosis in either kidney. No obstructing renal or ureteral calculi. Pelvic phleboliths. Normal gallbladder. Normal sigmoid colon. A few diverticuli. No evidence of small or large bowel obst ruction. No free fluid in the pelvis. No abdominal or pelvic lymphadenopathy. No inguinal lymphadenop athy. Disc space narrowing worse L5-S1 with vacuum disc phenomenon. This appears progressed compared to 2019. Mild disc bulging L5-S1. CT/CT abdomen pelvis wo con [id number] IMPRESSION: 1. No hydronephrosis in either kidney. No obstructing renal or ureteral calcul i. 2. Hepatomegaly diffuse fatty infiltration appears unchanged. 3. No free fluid in the abdomen or pelvis. 4. Disc space narrowing L5-S1 with mild disc bulging progressed compared to . 5. Prior hysterectomy and appendectomy. 6. No other significant changes compared to previous.
--- NOTE | 2021-10-10 09:14 | CT_ITS ---
WS: [id number] CT HEAD TECHNIQUE: Noncontrast CT of the head obtained from the skullbase to the vertex. CLINICAL INFORMATION: R53.1 - Weakness COMPARISON: CT 11 10,012 DLP: 1017.[address] scans at [facility] use at least one of these dose optimization techniques: automated e xposure control; mA and/or kV adjustment per patient size (includes targeted exams where dose is matc hed to clinical indication); or iterative reconstruction. FINDINGS: No evidence of intracranial hemorrhage or mass effect. Ventricular system and basal cisterns are aguilar nt. Mild small vessel changes with mild parenchymal volume loss. No extra-axial fluid collections. No evidence of mass or mass effect. Normal cisneros-white differentiation. Mild ethmoid sinusitis. Paranasal sinuses otherwise well aerated where visualized. Mastoid air cells well aerated. Normal visualized posterior nasopharynx. CT/CT head wo con* [id number] IMPRESSION: 1. No evidence of intracranial hemorrhage or mass effect. 2. Mild small vessel changes. Mild parenchymal volume loss progressed compared to 12. 3. Mild ethmoid sinusitis. 4. No acute intracranial findings.
[2021-10-10] MEDS: iohexol 300 mg/mL 50 mL Btl PO (09:48)
== END 2021-10-10 08:58 | disposition home or self-care (01) ==
LOC: RAD 09:05
PROVIDERS: PCP Nurse Practitioner; Visit Provider Nurse Practitioner
DX: R53.1 Weakness (principal); R10.13 Epigastric pain; J32.2 Chronic ethmoidal sinusitis; R16.0 Hepatomegaly, not elsewhere classified; K76.0 Fatty (change of) liver, not elsewhere classified; Z90.710 Acquired absence of both cervix and uterus; Q42.8 Congenital absence, atresia and stenosis of other parts of large intestine
CPT/HCPCS: 70450; 74176

== ENCOUNTER → 2021-10-25 15:02 | Outpatient (BNVA) | payer MEDICARE, MEDICAID, SELFPAY | PROVIDERS: PCP Nurse Practitioner; Visit Provider Nurse Practitioner Family | DX: J44.9 Chronic obstructive pulmonary disease, unspecified (principal); R06.02 Shortness of breath; R05.9 Cough, unspecified; Z20.822 Contact with and (suspected) exposure to COVID-19 | CPT/HCPCS: 71046; 80053; 83036; 87635 ==

== ENCOUNTER 2021-11-30 12:27 | Outpatient (CLI) | payer MEDICARE, MEDICAID, SELFPAY ==
--- NOTE | 2021-11-30 13:00 | CTR_ITS ---
PROCEDURE INFORMATION: Exam: CTA Chest With Contrast Exam date and time: 11/30/2021 1:06 PM Age: 56 years old Clinical indication: Condition or disease; Lung condition and disease; Patient HX: --f/u recent pneumonia, on o2, copd, emphysema; Additional info: Abnormal xray, rule out pe TECHNIQUE: Imaging protocol: Computed tomographic angiography of the chest with contrast. 3D rendering (Not supervised by radiologist): MIP and/or 3D reconstructed images were created by the technologist. Radiation optimization: All CT scans at this facility use at least one of these dose optimization techniques: automated exposure control; mA and/or kV adjustment per patient size (includes targeted exams where dose is matched to clinical indication); or iterative reconstruction. Contrast material: OMNI 300; Contrast volume: 95 ml; Contrast route: INTRAVENOUS (IV); COMPARISON: CTA Chest-Pulmonary Emb [id number] 11/27/2016 9:59 PM RADIATION DOSE METRICS: Total DLP (mGy-cm): 559.51 FINDINGS: Pulmonary arteries: Normal. No pulmonary emboli. Aorta: Unremarkable. No aortic aneurysm. No aortic dissection. Lungs: There is a calcified granuloma in the left lower lobe of the lung. No lung mass or significant consolidation. Pleural spaces: Unremarkable. No pneumothorax. No pleural effusion. Heart: Unremarkable. No cardiomegaly. No pericardial effusion. Lymph nodes: Unremarkable. No enlarged lymph nodes. Bones/joints: There is calcification in the left thoracic hilum. Soft tissues: Unremarkable. CT/CT angio chest PE protcl [id number] IMPRESSION: There are no acute concerning abnormalities.
== END 2021-11-30 12:28 | disposition home or self-care (01) ==
LOC: RAD 12:29
PROVIDERS: PCP Nurse Practitioner; Visit Provider Nurse Practitioner Family
DX: J84.9 Interstitial pulmonary disease, unspecified (principal); R05.9 Cough, unspecified; R06.02 Shortness of breath; R93.89 Abnormal findings on diagnostic imaging of other specified body structures; J44.9 Chronic obstructive pulmonary disease, unspecified; Z99.81 Dependence on supplemental oxygen; Z87.01 Personal history of pneumonia (recurrent)
CPT/HCPCS: 71275; Q9967

== ENCOUNTER → 2022-03-12 16:22 | Outpatient (BNVA) | payer MEDICARE, MEDICAID, SELFPAY | PROVIDERS: PCP Nurse Practitioner; Visit Provider Nurse Practitioner | DX: J44.9 Chronic obstructive pulmonary disease, unspecified (principal); K12.2 Cellulitis and abscess of mouth; F44.5 Conversion disorder with seizures or convulsions; K58.9 Irritable bowel syndrome, unspecified; I10 Essential (primary) hypertension; E11.65 Type 2 diabetes mellitus with hyperglycemia; Z79.4 Long term (current) use of insulin; R10.13 Epigastric pain; F51.5 Nightmare disorder; F43.10 Post-traumatic stress disorder, unspecified; E78.2 Mixed hyperlipidemia; F41.9 Anxiety disorder, unspecified; F32.9 Major depressive disorder, single episode, unspecified; J44.1 Chronic obstructive pulmonary disease with (acute) exacerbation; Z12.11 Encounter for screening for malignant neoplasm of colon; Z12.39 Encounter for other screening for malignant neoplasm of breast | CPT/HCPCS: 80053; 80061; 82607; 83036; 84443; 85025 ==

== ENCOUNTER → 2022-03-19 09:54 | Outpatient (BNVA) | payer MEDICARE, MEDICAID, SELFPAY | PROVIDERS: PCP Nurse Practitioner; Referring Provider Nurse Practitioner; Visit Provider Surgery | DX: Z12.11 Encounter for screening for malignant neoplasm of colon (principal); K21.9 Gastro-esophageal reflux disease without esophagitis; R10.9 Unspecified abdominal pain | CPT/HCPCS: 99203 ==

== ENCOUNTER → 2022-06-10 11:17 | Outpatient (BNVA) | payer MEDICARE, MEDICAID, SELFPAY | PROVIDERS: PCP Nurse Practitioner; Visit Provider Nurse Practitioner | DX: J44.9 Chronic obstructive pulmonary disease, unspecified (principal); K12.2 Cellulitis and abscess of mouth; F44.5 Conversion disorder with seizures or convulsions; K58.9 Irritable bowel syndrome, unspecified; I10 Essential (primary) hypertension; E11.65 Type 2 diabetes mellitus with hyperglycemia; Z79.4 Long term (current) use of insulin; R10.13 Epigastric pain; F51.5 Nightmare disorder; F43.10 Post-traumatic stress disorder, unspecified; E78.2 Mixed hyperlipidemia; F41.9 Anxiety disorder, unspecified; F32.9 Major depressive disorder, single episode, unspecified | CPT/HCPCS: 80053; 80061; 81000; 83036; 84443; 85025 ==

== ENCOUNTER 2022-06-12 07:48 | Day surgery (SDC) | payer MEDICARE, MEDICAID, SELFPAY ==
[2022-06-10 14:04] VITALS: BMI 36.3
[2022-06-12 08:33] VITALS: BP 186/108; PULSE 77; RESP 17; TEMP 37; O2SAT 98
[2022-06-12 08:43] LABS: Glucose Point of Care 142 mg/dL (70-110)
--- NOTE | 2022-06-12 08:48 | P.ANESASSM_ITS ---
Pre-Anesthetic Assessment Height/Weight: Height 1.63 m Weight 96.162 kg Temp Pulse Resp BP Pulse Ox O2 Del Method 98.6 F 77 17 186/108 98 06/12/22 08:33 06/12/22 08:33 06/12/22 08:33 06/12/22 08:33 06/12/22 08:33 06/12/22 08:33 Preop Diagnosis: Difficulty in swallowing Operation Date: 06/12/22 09:15 Proposed Procedures p 58267 EGD 62407 Colon R10.9,K21.9(Not Applicable) - DO alaina Chand Colonoscopy(Not Applicable) - Cristobal Chan DO Familial anesthetic complications: none Was Beta Nino taken within 24 hours: Yes Was Clonidine taken within 24 hours: N/A Last intake: Intake Last Liquid Date 06/11/22 Last Liquid Time 23:30 Last Solid Date 06/10/22 Last Solid Time 18:00 Social Tobacco and No alcohol Exam alert, oriented x 3 and regular rate & rhythm coarse breath sounds b/l Airway Dentition: other (no teeth) Pulmonary Chronic Obstructive Pulmonary Disease (2 L NC) CV/HEM Coronary Artery Disease (stents) and Hypertension GI Gastroesophageal Reflux Disease Metabolic Diabetes Mellitus, Hyperlipidemia and Morbid Obesity Anesthetic Plan ASA status: 4 Anesthesia: MAC Risk of > 500 ml blood loss (7ml/kg in children): No Medications/Allergies Home Medications Medication Instructions Recorded Confirmed Last Taken Type hydroxyzine pamoate 25 mg capsule 25 mg PO TID PRN Itching 07/26/19 06/12/22 06/11/22 History melatonin 10 mg capsule 10 mg PO BEDTIME@2200 07/26/19 06/12/22 06/11/22 History nebulizers #1 ea 07/26/19 06/10/22 1 Day Ago History ~09/21/19 multivitamin (Multiple Vitamins 1 tab PO DAILY@0700 09/21/19 06/12/22 06/11/22 History tablet) lancets (ReliOn Ultra Thin Plus #100 ea 01/24/20 06/10/22 Unknown Rx Lancets) relion machine #1 ea 05/02/20 06/10/22 Unknown Rx ascorbic acid 7.5 mg-vit E 7.5 1 tab PO DAILY@0700 12/14/20 06/12/22 06/11/22 History unit-biotin 1,250 mcg chewable tablet (Hair,Skin,Nails with Biotin) one touch ulta #1 ea 02/16/21 06/10/22 Unknown Rx flash glucose scanning reader #1 ea 09/03/21 06/10/22 Unknown Rx (FreeStyle Kevin 2 [place]) OXYGEN @ 2L PER N/C #1 ea 10/25/21 06/10/22 Unknown Rx pantoprazole 40 mg tablet,delayed 40 mg PO DAILY #30 tabs 03/19/22 06/12/22 06/11/22 Rx release flash glucose sensor (FreeStyle #2 ea 03/27/22 06/10/22 Unknown Rx Kevin 2 Sensor kit) meclizine 25 mg tablet 25 mg PO TID PRN Nausea #20 tabs 06/01/22 06/12/22 06/11/22 Rx tirzepatide 2.5 mg/0.5 mL 7.5 mg (1.5 mL) SUBCUT .weekly #2 06/01/22 06/12/22 Unknown Rx subcutaneous pen injector mL (Teresa) pen needle, diabetic 33 gauge x #200 ea 06/04/22 06/10/22 Unknown Rx /32 albuterol sulfate 2.5 mg/3 mL 2.5 mg (3 mL) inhalation Q4H PRN 06/10/22 06/12/22 06/11/22 Rx (0.083 %) solution for nebulization Shortness Of Breath #180 mL albuterol sulfate 90 mcg/actuation 2 puff inhalation Q6H PRN 06/10/22 06/12/22 06/12/22 Rx aerosol inhaler shortness of breath or wheezing #8.5 grams budesonide-formoterol HFA 160 2 puff inhalation BID@0700,2200 06/10/22 06/12/22 06/11/22 Rx mcg-4.5 mcg/actuation aerosol #10.2 grams inhaler (Symbicort) chlorhexidine gluconate 0.12 % 15 ml buccal BID #1,500 mL 06/10/22 06/12/22 06/11/22 Rx mouthwash (Peridex) clonazepam 1 mg tablet (Klonopin) 1 mg PO BID #60 tabs 06/10/22 06/12/22 06/11/22 Rx docusate sodium 100 mg capsule 100 mg PO DAILY PRN Constipation 06/10/22 06/12/22 06/11/22 Rx (Colace) #60 caps furosemide 20 mg tablet 20 mg PO BID #60 tabs 06/10/22 06/12/22 06/11/22 Rx insulin aspart U-100 100 unit/mL See Rx Instructions SUBCUT TID #15 06/10/22 06/12/22 06/12/22 Rx (3 mL) subcutaneous pen (Novolog mL Flexpen U-100 Insulin aspart) insulin degludec 100 unit/mL (3 90 unit (0.9 mL) SUBCUT BID #54 mL 06/10/22 06/12/22 06/11/22 Rx mL) subcutaneous pen (Tresiba FlexTouch U-100 insulin) metoprolol succinate 50 mg 50 mg PO DAILY #30 tabs 06/10/22 06/12/22 06/11/22 Rx tablet,extended release 24 hr (Toprol XL) omeprazole 20 mg capsule,delayed 20 mg PO BID #60 caps 06/10/22 06/12/22 06/11/22 Rx release prazosin 1 mg capsule 1 mg PO BEDTIME@2200 #30 caps 06/10/22 06/12/22 06/10/22 Rx roflumilast 500 mcg tablet 500 mcg PO DAILY@2200 #30 tabs 06/10/22 06/12/22 06/11/22 Rx (Daliresp) rosuvastatin 40 mg tablet (Crestor) 40 mg PO DAILY@2200 #30 tabs 06/10/22 06/12/22 06/11/22 Rx sertraline 100 mg tablet (Zoloft) 100 mg PO DAILY@0700 #30 tabs 06/10/22 06/12/22 06/11/22 Rx valsartan 320 mg tablet (Diovan) 320 mg PO DAILY #30 tabs 06/10/22 06/12/22 06/11/22 Rx zonisamide 100 mg capsule 100 mg PO TID@07,, #90 caps 06/10/22 06/12/22 06/11/22 Rx Allergies Allergy/AdvReac Type Severity Reaction Status Date / Time aspirin Allergy swelling Verified 06/11/22 21:08 Latex, Natural Rubber Allergy ALGY-Hives Verified 06/11/22 21:08 Sulfa (Sulfonamide Allergy nausea/vomi Verified 06/11/22 21:08 Antibiotics) ting promethazine AdvReac mood chage Verified 06/11/22 21:08 [facility] Anesthesia Medical History Anxiety and depression Benign hypertension Chronic neck pain COPD (chronic obstructive pulmonary disease) Diabetes mellitus with hyperglycemia, with long-term current use of insulin Dysphagia Epigastric pain Hyperlipidemia, unspecified Nightmares associated with chronic post-traumatic stress disorder Surgical History History of appendectomy History of hysterectomy for cancer History of tonsillectomy Family History Other Cancer Heart disease Hypertension Stroke Denies family history of Anesthesia complication Bleeding disorder Social History Smoking and tobacco status: current every day smoker cigarettes Packs smoked per day: 1 Second hand smoke exposure: Yes Smoking risk assessment/counseling performed?: Yes Alcohol intake: never Desire information about alcohol rehabilitation?: No Counseling given: No Desire information about substance/drug rehabilitation?: No Counseling given: No Caregiver/support person: No Lives independently: Yes Household members: other Marital status: / service: No Current occupational status: unemployed History of recent travel: No Current gender identity: Female Data Anesthesia Cardiac Studies: No Data to Display
[2022-06-12] MEDS: sodium chloride 0.9% 1,000 ML 30 ML IV (08:49)
--- NOTE | 2022-06-12 09:51 | PM.HP ---
Providers/Chief Complaint Primary Care Provider: EDUARD LandisC Chief Complaint: R10.9 History of Present Illness Cori Ramirez is a 56 year old female here for EGD and colonoscopy Medications/Allergies Home Medications Medication Instructions Recorded Confirmed Last Taken Type hydroxyzine pamoate 25 mg capsule 25 mg PO TID PRN Itching 07/26/19 06/12/22 06/11/22 History melatonin 10 mg capsule 10 mg PO BEDTIME@2200 07/26/19 06/12/22 06/11/22 History nebulizers #1 ea 07/26/19 06/10/22 1 Day Ago History ~09/21/19 multivitamin (Multiple Vitamins 1 tab PO DAILY@0700 09/21/19 06/12/22 06/11/22 History tablet) lancets (ReliOn Ultra Thin Plus #100 ea 01/24/20 06/10/22 Unknown Rx Lancets) relion machine #1 ea 05/02/20 06/10/22 Unknown Rx ascorbic acid 7.5 mg-vit E 7.5 1 tab PO DAILY@0700 12/14/20 06/12/22 06/11/22 History unit-biotin 1,250 mcg chewable tablet (Hair,Skin,Nails with Biotin) one touch ulta #1 ea 02/16/21 06/10/22 Unknown Rx flash glucose scanning reader #1 ea 09/03/21 06/10/22 Unknown Rx (FreeStyle Kevin 2 [place]) OXYGEN @ 2L PER N/C #1 ea 10/25/21 06/10/22 Unknown Rx pantoprazole 40 mg tablet,delayed 40 mg PO DAILY #30 tabs 03/19/22 06/12/22 06/11/22 Rx release flash glucose sensor (FreeStyle #2 ea 03/27/22 06/10/22 Unknown Rx Kevin 2 Sensor kit) meclizine 25 mg tablet 25 mg PO TID PRN Nausea #20 tabs 06/01/22 06/12/22 06/11/22 Rx tirzepatide 2.5 mg/0.5 mL 7.5 mg (1.5 mL) SUBCUT .weekly #2 06/01/22 06/12/22 Unknown Rx subcutaneous pen injector mL (Teresa) pen needle, diabetic 33 gauge x #200 ea 06/04/22 06/10/22 Unknown Rx albuterol sulfate 2.5 mg/3 mL 2.5 mg (3 mL) inhalation Q4H PRN 06/10/22 06/12/22 06/11/22 Rx (0.083 %) solution for nebulization Shortness Of Breath #180 mL albuterol sulfate 90 mcg/actuation 2 puff inhalation Q6H PRN 06/10/22 06/12/22 06/12/22 Rx aerosol inhaler shortness of breath or wheezing #8.5 grams budesonide-formoterol HFA 160 2 puff inhalation BID@0700,2200 06/10/22 06/12/22 06/11/22 Rx mcg-4.5 mcg/actuation aerosol #10.2 grams inhaler (Symbicort) chlorhexidine gluconate 0.12 % 15 ml buccal BID #1,500 mL 06/10/22 06/12/22 06/11/22 Rx mouthwash (Peridex) clonazepam 1 mg tablet (Klonopin) 1 mg PO BID #60 tabs 06/10/22 06/12/22 06/11/22 Rx docusate sodium 100 mg capsule 100 mg PO DAILY PRN Constipation 06/10/22 06/12/22 06/11/22 Rx (Colace) #60 caps furosemide 20 mg tablet 20 mg PO BID #60 tabs 06/10/22 06/12/22 06/11/22 Rx insulin aspart U-100 100 unit/mL See Rx Instructions SUBCUT TID #15 06/10/22 06/12/22 06/12/22 Rx (3 mL) subcutaneous pen (Novolog mL Flexpen U-100 Insulin aspart) insulin degludec 100 unit/mL (3 90 unit (0.9 mL) SUBCUT BID #54 mL 06/10/22 06/12/22 06/11/22 Rx mL) subcutaneous pen (Tresiba FlexTouch U-100 insulin) metoprolol succinate 50 mg 50 mg PO DAILY #30 tabs 06/10/22 06/12/22 06/11/22 Rx tablet,extended release 24 hr (Toprol XL) omeprazole 20 mg capsule,delayed 20 mg PO BID #60 caps 11/28/22 11/30/22 11/29/22 Rx release prazosin 1 mg capsule 1 mg PO BEDTIME@2200 #30 caps 06/10/22 06/12/22 06/10/22 Rx roflumilast 500 mcg tablet 500 mcg PO DAILY@2200 #30 tabs 06/10/22 06/12/22 06/11/22 Rx (Daliresp) rosuvastatin 40 mg tablet (Crestor) 40 mg PO DAILY@2200 #30 tabs 06/10/22 06/12/22 06/11/22 Rx sertraline 100 mg tablet (Zoloft) 100 mg PO DAILY@0700 #30 tabs 06/10/22 06/12/22 06/11/22 Rx valsartan 320 mg tablet (Diovan) 320 mg PO DAILY #30 tabs 06/10/22 06/12/22 06/11/22 Rx zonisamide 100 mg capsule 100 mg PO TID@07,, #90 caps 06/10/22 06/12/22 06/11/22 Rx Allergies Allergy/AdvReac Type Severity Reaction Status Date / Time aspirin Allergy swelling Verified 06/11/22 21:08 Latex, Natural Rubber Allergy ALGY-Hives Verified 06/11/22 21:08 Sulfa (Sulfonamide Allergy nausea/vomi Verified 06/11/22 21:08 Antibiotics) ting promethazine AdvReac mood chage Verified 06/11/22 21:08 PFSH Acute PFSH: Medical History Anxiety and depression Benign hypertension Chronic neck pain COPD (chronic obstructive pulmonary disease) Diabetes mellitus with hyperglycemia, with long-term current use of insulin Dysphagia Epigastric pain Hyperlipidemia, unspecified Nightmares associated with chronic post-traumatic stress disorder Surgical History History of appendectomy History of hysterectomy for cancer History of tonsillectomy Family History Other Cancer Heart disease Hypertension Stroke Denies family history of Anesthesia complication Bleeding disorder Social History Smoking and tobacco status: current every day smoker cigarettes Packs smoked per day: 1 Second hand smoke exposure: Yes Smoking risk assessment/counseling performed?: Yes Alcohol intake: never Desire information about alcohol rehabilitation?: No Counseling given: No Desire information about substance/drug rehabilitation?: No Counseling given: No Caregiver/support person: No Lives independently: Yes Household members: other Marital status: / service: No Current occupational status: unemployed History of recent travel: No Current gender identity: Female Vitals/I&O/Wt Last Vital Signs Temp 98.6 F 06/12/22 08:33 Pulse 77 06/12/22 08:33 Resp 17 06/12/22 08:33 BP 186/108 06/12/22 08:33 Pulse Ox 98 06/12/22 08:33 O2 Del Method 06/12/22 08:33 Weight last 48 hrs Weight 212 lb A&P Assessment and plan (1) GERD (gastroesophageal reflux disease): (2) Encounter for screening: Plan EGD and colonoscopy Attestations Medical Necessity Statement*: Home Coding Level of Care Code Acute Religious Education Teacher for Chg Fwd Diagnoses GERD (gastroesophageal reflux disease) K21.9 Encounter for screening Z13.9
[2022-06-12] MEDS: midazolam 1 mg/mL INJ 2 mL IVP (09:53)
[2022-06-12 10:49] VITALS: BP 123/72; PULSE 75; RESP 14; TEMP 36.2; O2SAT 96
[2022-06-12 11:06] VITALS: BP 123/72; PULSE 69; RESP 16; O2SAT 97
--- NOTE | 2022-06-12 14:56 | ANE.PACU2 ---
Inpatient post-anesthesia follow up: Airway intact: Yes Vital signs: Temperature 97.1 F Pulse Rate 69 Respiratory Rate 16 Blood Pressure 123/72 Pulse Oximetry 97 Oxygen Delivery Me thod Nasal Cannula Oxygen Flow Rate 2 Fraction of Inspir ed Oxygen Hydration adequate: Yes Nausea and vomiting: No Pain level: 1 Mental status: Baseline
== END 2022-06-12 11:25 | disposition home or self-care (01) ==
PROVIDERS: PCP Nurse Practitioner; Visit Provider Surgery
PROC: 0DJ08ZZ Inspection of Upper Intestinal Tract, Via Natural or Artificial Opening Endoscopic (ICD-10-PCS; CPT 43235; principal; 2022-06-12 09:15)
PROC: 0DJD8ZZ Inspection of Lower Intestinal Tract, Via Natural or Artificial Opening Endoscopic (ICD-10-PCS; CPT 45378; 2022-06-12 09:15)
DX: K21.9 Gastro-esophageal reflux disease without esophagitis (principal); K57.30 Diverticulosis of large intestine without perforation or abscess without bleeding; K64.8 Other hemorrhoids; K29.50 Unspecified chronic gastritis without bleeding; B96.81 Helicobacter pylori [H. pylori] as the cause of diseases classified elsewhere; E11.9 Type 2 diabetes mellitus without complications; Z79.4 Long term (current) use of insulin; I10 Essential (primary) hypertension; F41.9 Anxiety disorder, unspecified; F32.A Depression, unspecified; E78.5 Hyperlipidemia, unspecified; F17.210 Nicotine dependence, cigarettes, uncomplicated; J44.9 Chronic obstructive pulmonary disease, unspecified; Z99.81 Dependence on supplemental oxygen; E66.01 Morbid (severe) obesity due to excess calories; Z68.36 Body mass index [BMI] 36.0-36.9, adult
CPT/HCPCS: 36416; 43239; 82962; 88305; 88342; G0121; J2250; J2704; J3490; J7030

== ENCOUNTER → 2022-06-25 15:16 | Outpatient (BNVA) | payer MEDICARE, MEDICAID, SELFPAY | PROVIDERS: PCP Nurse Practitioner; Visit Provider Surgery | DX: Z09 Encounter for follow-up examination after completed treatment for conditions other than malignant neoplasm (principal); K29.70 Gastritis, unspecified, without bleeding; B96.81 Helicobacter pylori [H. pylori] as the cause of diseases classified elsewhere | CPT/HCPCS: 99212 ==

== ENCOUNTER → 2022-08-26 15:02 | Outpatient (BNVA) | payer MEDICARE, MEDICAID, SELFPAY | PROVIDERS: PCP Nurse Practitioner; Visit Provider Nurse Practitioner | DX: E11.65 Type 2 diabetes mellitus with hyperglycemia (principal); Z79.4 Long term (current) use of insulin; J44.9 Chronic obstructive pulmonary disease, unspecified; K12.2 Cellulitis and abscess of mouth; F44.5 Conversion disorder with seizures or convulsions; I10 Essential (primary) hypertension; F51.5 Nightmare disorder; F43.10 Post-traumatic stress disorder, unspecified; E78.2 Mixed hyperlipidemia; F41.9 Anxiety disorder, unspecified; F32.9 Major depressive disorder, single episode, unspecified | CPT/HCPCS: 80053; 80061; 83036; 84443; 85025 ==

== ENCOUNTER → 2022-11-27 09:15 | Outpatient (BNVA) | payer MEDICARE, MEDICAID, SELFPAY | PROVIDERS: PCP Nurse Practitioner; Visit Provider Nurse Practitioner | DX: J44.9 Chronic obstructive pulmonary disease, unspecified (principal); K12.2 Cellulitis and abscess of mouth; K58.9 Irritable bowel syndrome, unspecified; I10 Essential (primary) hypertension; F44.5 Conversion disorder with seizures or convulsions; E11.65 Type 2 diabetes mellitus with hyperglycemia; Z79.4 Long term (current) use of insulin; R10.13 Epigastric pain; F51.5 Nightmare disorder; F43.10 Post-traumatic stress disorder, unspecified; E78.2 Mixed hyperlipidemia; F41.9 Anxiety disorder, unspecified; F32.9 Major depressive disorder, single episode, unspecified; K29.70 Gastritis, unspecified, without bleeding; Z12.39 Encounter for other screening for malignant neoplasm of breast | CPT/HCPCS: 80053; 80061; 83036 ==

== ENCOUNTER 2022-12-10 15:25 | Outpatient (CLI) | payer MEDICARE, MEDICAID, SELFPAY ==
--- NOTE | 2022-12-10 15:36 | MM_ITS ---
WS: [id number] BILATERAL 3D TOMOSYNTHESIS DIGITAL SCREENING MAMMOGRAPHY WITH CAD CLINICAL INFORMATION: Z12.39 - Encounter for other screening for malignant neop... HISTORY: Screening mammogram. Chronic bilateral breast lumps and soreness. COMPARISON: TECHNIQUE: Bilateral CC and MLO views. FINDINGS: Scattered fibroglandular densities bilaterally. No suspicious focal mass, asymmetry, calcifications, or architectural distortion. No evidence of malignancy. MM/[place] [id number] IMPRESSION: BI-RADS: 1-Negative FOLLOW UP: 1 Year Follow-up Recommend return to annual screening mammography.
== END 2022-12-10 15:26 | disposition home or self-care (01) ==
LOC: RAD 15:29
PROVIDERS: PCP Nurse Practitioner; Visit Provider Nurse Practitioner
DX: Z12.31 Encounter for screening mammogram for malignant neoplasm of breast (principal)
CPT/HCPCS: 77063; 77067; 80053; 80061; 83036

== ENCOUNTER → 2023-02-19 10:22 | Outpatient (BNVA) | payer MEDICARE, MEDICAID, SELFPAY | PROVIDERS: PCP Nurse Practitioner; Visit Provider Nurse Practitioner | DX: J44.9 Chronic obstructive pulmonary disease, unspecified (principal); K12.2 Cellulitis and abscess of mouth; F44.5 Conversion disorder with seizures or convulsions; K58.9 Irritable bowel syndrome, unspecified; E11.65 Type 2 diabetes mellitus with hyperglycemia; Z79.4 Long term (current) use of insulin; I10 Essential (primary) hypertension; F51.5 Nightmare disorder; F43.10 Post-traumatic stress disorder, unspecified; E78.2 Mixed hyperlipidemia; F41.9 Anxiety disorder, unspecified; F32.9 Major depressive disorder, single episode, unspecified | CPT/HCPCS: 80053; 80061; 81000; 82607; 83036; 84443 ==

== ENCOUNTER → 2023-04-10 11:22 | Outpatient (BNVA) | payer MEDICARE, MEDICAID, SELFPAY | PROVIDERS: PCP Nurse Practitioner; Visit Provider Nurse Practitioner | DX: K58.9 Irritable bowel syndrome, unspecified (principal) | CPT/HCPCS: 74018 ==

== ENCOUNTER → 2023-05-14 11:40 | Outpatient (BNVA) | payer MEDICARE, MEDICAID, SELFPAY | PROVIDERS: PCP Nurse Practitioner; Visit Provider Nurse Practitioner | DX: E11.65 Type 2 diabetes mellitus with hyperglycemia (principal); Z79.4 Long term (current) use of insulin | CPT/HCPCS: 80053; 80061; 83036; 84439; 84443; 84481; 85025 ==

== ENCOUNTER 2023-07-26 20:42 | Emergency (ER) | payer MEDICARE, MEDICAID, SELFPAY ==
[2023-07-26 20:45] VITALS: BP 218/118; PULSE 99; RESP 14; TEMP 36.9; O2SAT 97
--- NOTE | 2023-07-26 20:56 | ECG_ITS ---
[facility] Test Date: 2023-07-26 Pat Name: Cori Raimrez Department: Room: Gender: Female Director Educational Radio: : 1965 Requested By: Cristofer Tracey Order Number: [id number] Mike MD: Galileo Peterson M.D. Measurements Intervals [place] Rate: 82 P: 59 AK: 133 QRS: -1 QRSD: 97 T: 62 QT: 387 QTc: 453 Interpretive Statements SINUS RHYTHM WITH FREQUENT VENTRICULAR PREMATURE COMPLEXES POSSIBLE LEFT ATRIAL ENLARGEMENT [-0.1mV P-WAVE IN V1/V2] POSSIBLE LATERAL MYOCARDIAL INFARCTION , OF INDETERMINATE AGE [30 ms Q WAVE IN I/aVL/V5/V6] Compared to ECG 12/14/2020 21:33:50 Ventricular premature complex(es) now present Myocardial infarct finding now present Electronically Signed On 07-28-2023 8:04:46 GOLF COURSE MANAGER by Galileo Peterson M.D. [id number]
--- NOTE | 2023-07-26 21:08 | XRR_ITS ---
PROCEDURE INFORMATION: Exam: XR Chest Exam date and time: 07/26/2023 9:11 PM Age: 57 years old Clinical indication: Chest pressure; Prior surgery; Surgery date: 6+ months; Surgery type: Coronary stents; Patient HX: C/O chest pain. Hypertensive. ; Additional info: Cp TECHNIQUE: Imaging protocol: Radiologic exam of the chest. Views: 1 view. COMPARISON: CT angio chest PE protcl [id number] 30/11/2021 13:06 FINDINGS: Lungs: Emphysema. Calcified granuloma in the left lung base. Linear atelectasis in the right lung base. Pleural spaces: Blunting of the right costophrenic angle. No pneumothorax. Heart/Mediastinum: Unremarkable. No cardiomegaly. Bones/joints: Unremarkable. XR/XR chest 1V portable [id number] IMPRESSION: 1. Blunting of the right costophrenic angle could represent a small pleural effusion versus pleural scarring. 2. No acute pulmonary findings.
[2023-07-26 21:18] LABS: Basophils # 0.1 10^3/uL (0.0-0.1); Basophils % 0.6 %; Eosinophils # 0.4 10^3/uL (0.0-0.8); Hematocrit 44.4 % (36-47); Lymphocytes # 2.8 10^3/uL (0.8-4.8); Lymphocytes % 26.3 %; Mean Corpuscular HGB Conc 33.8 g/dL (30-55); Mean Corpuscular Hemoglobin 30.4 pg (27-33); Mean Corpuscular Volume 89.9 fl (85-98); Mean Platelet Volume 10.7 fL (7.4-10.4); Monocytes # 0.6 10^3/uL (0.2-0.9); Monocytes % 5.3 %; Neutrophils # 6.86 10^3/uL (1.8-7.7); Neutrophils % 63.4 %; Nucleated Red Blood Cells % 0 %; Platelet Count 290 10^3/cmm (157-399); Red Blood Count 4.94 10^6/uL (3.85-5.65); Red Cell Distribution Width 12.6 % (12.1-15.1); White Blood Count 10.81 10^3/uL (3.29-11.43)
[2023-07-26 21:31] LABS: INR 0.94 (0.8-1.2)
[2023-07-26 21:32] LABS: Partial Thromboplastin Time 27.9 SECONDS (23.9-36.7)
--- NOTE | 2023-07-26 21:32 | ED_ITS ---
HPI - Chest Pain 2 General: Chief Complaint: Chest Pain Stated Complaint: chest pain, left arm Time Seen by Provider: 07/26/23 21:00 History of Present Illness: 57-year-old female evidently with a hist ory of coronary disease and lung disease. She presents with chest discomfort, headache, and hypertension. She has had chest pain on and off for a week she says. She has been taking her blood pressure medication appropriately she says. Headache started this evening. She took her blood pressure at [facility] and it was very high, so she came to the emergency room. She notes several episodes of vomiting the last couple of hours as well. No fever. She is mildly short of breath. Associated symptoms: Reports dyspnea, nausea, palpitations and vomiting; Deny abdominal pain or fever(s) Review of Systems 2 Const: Denies: fever(s), chills or body aches Eyes: Denies: change in vision Card: Reports: chest pain and palpitations Resp: Reports: dyspnea; Denies: productive cough, non-productive cough or wheezing GI: Reports: nausea and vomiting; Denies: abdominal pain, diarrhea or hematochezia : Denies: difficulty voiding Skin/Breast: Denies: rash Neuro: Reports: dizziness; Denies: headache(s), weakness in extremities or confusion PFSH ED 2 PFSH: Medical History Anxiety and depression Benign hypertension Chronic neck pain COPD (chronic obstructive pulmonary disease) Diabetes mellitus with hyperglycemia, with long-term current use of insulin Dysphagia Epigastric pain Helicobacter pylori gastritis Hyperlipidemia, unspecified Nightmares associated with chronic post-traumatic stress disorder Surgical History History of tonsillectomy History of hysterectomy for cancer History of appendectomy Family History Other Cancer Heart disease Hypertension Stroke Denies family history of Anesthesia complication Bleeding disorder Social History Smoking and tobacco/nicotine status: former use of tobacco/nicotine Second hand smoke exposure: Yes Alcohol intake: never Substance/Drug Use: unknown Caregiver/support person: No Lives independently: Yes Household members: other Marital status: / service: No Current occupational status: unemployed Do you think of yourself as: Straight/Heterosexual Current gender identity: Female Physical Exam 2 Const: GENERAL APPEARANCE: cooperative, anxious and ill appearing (Mildly); not frail appearing HENMT: COMMON NORMALS: normocephalic, atraumatic and Normal external nose present HEAD & SCALP: normocephalic and atraumatic FACE & SINUS: normal facial exam and face symmetric NOSE: Normal external nose present Eye: COMMON NORMALS: Equal, round and reactive pupils present and EOMs intact bilaterally PUPIL: Yes Equal, round and reactive pupils present Neck/C-Spine: GENERAL: Yes trachea midline Chest: CHEST: Yes Symmetrical chest wall rise Resp: COMMON NORMALS: normal respiratory effort, No retractions, No use of accessory muscles and clear to auscultation bilaterally AUSCULTATION: clear to auscultation bilaterally Cardio: COMMON NORMALS: regular rate and regular rhythm RATE: regular rate RHYTHM: regular rhythm GI: COMMON NORMALS: Normal to inspection, nondistended, normoactive bowel sounds present Extremity: COMMON NORMALS: no pedal edema Neuro: JOSELITO COMA SCALE: document GCS findings Joselito coma scale eye opening: Spontaneous [place] coma scale verbal response: Orientated [place] coma scale motor response: Obey commands [place] coma scale total score: 15 S ENSORY EXAM: Yes extremities (intact) Psych: COMMON NORMALS: speech normal SPEECH: Yes normal speech Skin: COMMON NORMALS: no rashes or lesions noted GENERAL SKIN EXAM: no rashes or lesions noted Course 2 Vital Signs: Vital signs: Vital Signs Temperature 98.4 F 07/26/23 20:45 Pulse Rate 84 07/26/23 23:04 Respiratory Rate 16 07/26/23 23:04 Blood Pressure 158/87 07/26/23 23:04 Pulse Oximetry 94 07/26/23 23:04 Oxygen Delivery Me thod Room Air 07/26/23 20:45 MDM - Chest Pain Medical Decision Making 57-year-old female with chest pain, headache, nausea and vomiting and high blood pressure on presentation. Blood pressure is much improved after administration of labetalol, Vasotec, amlodipine. Headache is improved. Chest pain is improved. Head CT does not reveal acute bleed or edema. Chest x-ray shows blunting of right costophrenic angle which may be a mild pleural effusion versus scarring. CBC and BMP are normal. Delta troponin is normal at 2. BNP is only 400. No significant proteinuria. EKG shows no acute ST wave changes. With improvement in her symptoms, workup as above, she will be allowed discharge to home for outpatient follow-up. She will be prescribed amlodipine to take as needed for hypertension if blood pressure remains high. Return for worsening symptoms. She did have 2 seizure-like episodes while in the ER. notes that these are normal for her under stress related. She seemed to recover on her own. She was given lorazepam for stress related pseudoseizure. Lab Data 07/26/23 21:11 07/26/23 21:11 Radiology Impressions Chest X-Ray 07/26/23 21:08 IMPRESSION: 1. Blunting of the right costophrenic angle could represent a small pleural effusion versus pleural scarring. 2. No acute pulmonary findings. Head CT 07/26/23 21:35 IMPRESSION: 1. Small lacunar infarct in the right thalamus, this is most likely chronic but new since the prior study. 2. Mild microangiopathy. Laboratory Results WBC 10.81 10^3/uL (3.29-11.43) 07/26/23 21:11 RBC 4.94 10^6/uL (3.85-5.65) 07/26/23 21:11 Hgb 15.00 g/dL (11.27-16.99) 07/26/23 21:11 Hct 44.4 % (36-47) 07/26/23 21:11 MCV 89.9 fl (85-98) 07/26/23 21:11 MCH 30.4 pg (27-33) 07/26/23 21:11 MCHC 33.8 g/dL (30-55) 07/26/23 21:11 RDW 12.6 % (12.1-15.1) 07/26/23 21:11 Plt Count 290 10^3/cmm (157-399) 07/26/23 21:11 MPV 10.7 fL (7.4-10.4) H 07/26/23 21:11 Neut % (Auto) 63.4 % 07/26/23 21:11 Lymph % (Auto) 26.3 % 07/26/23 21:11 [place] % (Auto) 5.3 % 07/26/23 21:11 Eos % (Auto) 4.0 % 07/26/23 21:11 Baso % (Auto) 0.6 % 07/26/23 21:11 Neut # (Auto) 6.86 10^3/uL (1.8-7.7) 07/26/23 21:11 Lymph # (Auto) 2.8 10^3/uL (0.8-4.8) 07/26/23 21:11 [place] # (Auto) 0.6 10^3/uL (0.2-0.9) 07/26/23 21:11 Eos # (Auto) 0.4 10^3/uL (0.0-0.8) 07/26/23 21:11 Baso # (Auto) 0.1 10^3/uL (0.0-0.1) 07/26/23 21:11 Nucleated RBC % (auto) 0 % 07/26/23 21:11 Nucleated RBCs # 0.0 /100WBC 07/26/23 21:11 PT 12.80 SECONDS (12.1-14.9) 07/26/23 21:11 INR 0.94 (0.8-1.2) 07/26/23 21:11 APTT 27.9 SECONDS (23.9-36.7) 07/26/23 21:11 Sodium 140 mmol/L (136-145) 07/26/23 21:11 Potassium 3.8 mmol/L (3.5-5.1) 07/26/23 21:11 Chloride 103 mmol/L (98-107) 07/26/23 21:11 Carbon Dioxide 25 mmol/L (22-29) 07/26/23 21:11 Anion Gap 15.8 (5-19) 07/26/23 21:11 BUN 8 mg/dL (6-20) 07/26/23 21:11 Creatinine 0.6 mg/dL (0.5-0.9) 07/26/23 21:11 GFR Calculation 102.3 mL/min (90-130) 07/26/23 21:11 Glucose 175 mg/dL (65-115) H 07/26/23 21:11 Calculated Osmolality 293 mOsm/kg (285-295) 07/26/23 21:11 Calcium 9.6 mg/dL (8.5-10.5) 07/26/23 21:11 Total Bilirubin 0.4 mg/dL (0.15-1.2) 07/26/23 21:11 AST 16 U/L (0-32) 07/26/23 21:11 ALT 19 U/L (0-33) 07/26/23 21:11 Alkaline Phosphatase 148 U/L (35-105) H 07/26/23 21:11 Troponin T Baseline 9 ng/L (0-10) 07/26/23 21:11 Troponin T 120 Minute 11.29 ng/L (0-10) H 07/26/23 23:02 Delta Troponin T 2.29 ABS# (0-10) 07/26/23 23:02 NT-Pro-B Natriuret Pep 409 pg/mL (0-125) H 07/26/23 21:11 Total Protein 7.6 g/dL (6.6-8.7) 07/26/23 21:11 Albumin 4.3 g/dL (3.5-5.2) 07/26/23 21:11 Globulin 3.3 g/dL (1.3-4.6) 07/26/23 21:11 Urine Color Yellow (Yellow) 07/26/23 21:11 Urine Appearance Clear (CLEAR) 07/26/23 21:11 Urine pH 7 (5-7) 07/26/23 21:11 Ur Specific [place] 1.010 (1.005-1.030) 07/26/23 21:11 Urine Protein Trace (Negative) 07/26/23 21:11 Urine Glucose (UA) Norm (Normal) 07/26/23 21:11 Urine Ketones Negative (Negative) 07/26/23 21:11 Urine Blood Neg (Negative) 07/26/23 21:11 Urine Nitrate Negative (Negative) 07/26/23 21:11 Urine Bilirubin Neg (Negative) 07/26/23 21:11 Urine Urobilinogen Norm mg/dL (Negative) 07/26/23 21:11 Ur Leukocyte Esterase Negative (Negative) 07/26/23 21:11 Urine RBC 0-4 /hpf (0-2) H 07/26/23 21:11 Urine WBC 0-4 /hpf (0-5) H 07/26/23 21:11 Ur Squamous Epith Cells 0-4 /hpf (0-5) H 07/26/23 21:11 Amorphous Sediment Not Reportable 07/26/23 21:11 Urine Bacteria Trace /hpf (NONE) 07/26/23 21:11 Urine Mucus 2+ /hpf 07/26/23 21:11 Urine Opiates Screen Negative ng/mL (Negative) 07/26/23 21:11 Ur Barbiturates Screen Negative ng/mL (Negative) 07/26/23 21:11 Ur Phencyclidine Scrn Negative ng/mL (Negative) 07/26/23 21:11 Ur Amphetamines Screen Negative ng/mL (Negative) 07/26/23 21:11 U Benzodiazepines Scrn Negative ng/mL (Negative) 07/26/23 21:11 Urine Cocaine Screen Negative ng/mL (Negative) 07/26/23 21:11 U Marijuana (THC) Screen Positive ng/mL (Negative) H 07/26/23 21:11 All radiology interpretation(s) finalized by discharge Discharge Plan Discharge Patient Disposition: Home Clinical Impression: Chest pain, Hypertensive urgency Condition: Stable Prescriptions: New amlodipine 10 mg tablet 10 mg PO DAILY Qty: 30 0RF No Action hydroxyzine pamoate 25 mg capsule 25 mg PO TID PRN (Reason: Itching) (DME) nebulizers [facility] See Rx Instructions .ROUTE .MEDSUPPLY Qty: 1 Rx Instructions: As directed (DME) OXYGEN @ 2L PER N/C See Rx Instructions .Route .MEDSUPPLY Qty: 1 0RF Rx Instructions: As directed pantoprazole 40 mg tablet,delayed release (DR/EC) 40 mg PO DAILY Qty: 30 5RF Hold Instructions: Resume on 07/24/22. (DME) lancets [facility] See Rx Instructions .ROUTE .MEDSUPPLY Qty: 100 5RF Rx Instructions: three times day as needed topiramate [Topamax] 50 mg tablet 50 mg PO BID Qty: 60 2RF albuterol sulfate 2.5 mg /3 mL (0.083 %) solution for nebulization 2.5 mg INHALATION Q4H PRN (Reason: Shortness Of Breath) Qty: 180 2RF albuterol sulfate 90 mcg/actuation HFA aerosol inhaler 2 puff inhalation Q6H PRN (Reason: shortness of breath or wheezing) Qty: 8.5 2RF Symbicort 160-4.5 mcg/actuation HFA aerosol inhaler 2 puff INHALATION BID@0700,2200 Qty: 10.2 2RF chlorhexidine gluconate [Peridex] 0.12 % mouthwash 15 ml buccal BID Qty: 1500 0RF clonazepam 1 mg tablet 1 mg PO BID Qty: 60 2RF docusate sodium [Colace] 100 mg capsule 100 mg PO DAILY PRN (Reason: Constipation) Qty: 60 2RF furosemide 20 mg tablet 20 mg PO BID Qty: 60 2RF insulin aspart U-100 [Novolog FlexPen U-100 Insulin] 100 unit/mL (3 mL) insulin pen See Rx Instructions SUBCUT TID Qty: 15 2RF Rx Instructions: 110-129=3U,130-150=6U, 151-200=9U, 201-250=12U,251-300=15U,301-350=18U,351-400=21U,>400=24U SUBCUT three times daily; insulin degludec [Tresiba FlexTouch U-100] 100 unit/mL (3 mL) insulin pen 90 unit SUBCUT BID Qty: 54 2RF Probiotic Digestive Care 20 billion cell capsule See Rx Instructions PO .2 times day Qty: 60 2RF Rx Instructions: 20 billion cell PO .2 times day; Linzess 290 mcg capsule 290 mcg PO QAM Qty: 30 2RF meclizine 25 mg tablet,chewable 25 mg PO TID PRN (Reason: nausea) Qty: 90 0RF metoprolol succinate [Toprol XL] 50 mg tablet extended release 24 hr 50 mg PO DAILY Qty: 30 2RF prazosin 1 mg capsule 1 mg PO BEDTIME@2200 Qty: 30 2RF Daliresp 500 mcg tablet 500 mcg PO DAILY@2200 Qty: 30 2RF Crestor 40 mg tablet 40 mg PO DAILY@2200 Qty: 30 2RF Zoloft 100 mg tablet 100 mg PO DAILY@0700 Qty: 30 2RF Mounjaro 15 mg/0.5 mL pen injector 15 mg SUBCUT .weekly Qty: 2 2RF Hold Instructions: not in stock valsartan [Diovan] 320 mg tablet 320 mg PO DAILY Qty: 30 2RF zonisamide 100 mg capsule 100 mg PO TID@07,12,22 Qty: 90 2RF (DME) FreeStyle Kevin 2 Sensor Kit See Rx Instructions .Route Qty: 2 5RF Rx Instructions: change every 14 days (DME) pen needle, diabetic 33 gauge x 5/32 needle See Rx Instructions .ROUTE .MEDSUPPLY Qty: 200 5RF Rx Instructions: 4 times daily (DME) FreeStyle Kevin 2 Victor Misc See Rx Instructions .Route Qty: 1 0RF Rx Instructions: As directed penicillin V potassium 500 mg tablet 500 mg PO Q12H Qty: 20 0RF multivitamin [Multiple Vitamins] Tablet 1 tab PO DAILY@0700 Hair, Skin, Nails with Biotin 7.5-7.5-1,250 mg-unit-mcg Tablet,Chewable 1 tab PO DAILY@0700 Anusol-HC 2.5 % cream with perineal applicator 1 applic IA QID 10 Days Qty: 30 1RF Rx Instructions: May repeat for another 10 days if no resolution Discharge Orders: Discharge ED (Routine); Ordered 07/27/23 Ordered By: Cristofer Batres Referrals: Pedro Luis Mata, [employer] INSTRUCTOR-C [Primary Care Provider] - 1-3 days Patient Instructions: Chest Pain (ED), Hypertension (ED), Opioid Safety, Pain Management Activity Restrictions/Additional Instructions: Take your blood pressure twice daily, report numbers to your physician next week. If your blood pressure remains greater than 140/90, take the medication prescribed. You do not have to take the medication if your blood pressure is under control. Return for worsening chest pain despite comfort, worsening headache, vomiting, other concerning symptoms. See your doctor next week. Coding Level of Care Code ED [facility]
--- NOTE | 2023-07-26 21:35 | CTR_ITS ---
PROCEDURE INFORMATION: Exam: CT Head Without Contrast Exam date and time: 07/26/2023 10:14 PM Age: 57 years old Clinical indication: Pain; Headache; Patient HX: MCCLAIN with hypertension; Additional info: Headache HTN TECHNIQUE: Imaging protocol: Computed tomography of the head without contrast. Radiation optimization: All CT scans at this facility use at least one of these dose optimization techniques: automated exposure control; mA and/or kV adjustment per patient size (includes targeted exams where dose is matched to clinical indication); or iterative reconstruction. COMPARISON: CT head wo con* [id number] 10/10/2021 11:02 RADIATION DOSE METRICS: Total DLP (mGy-cm): 1024.08 FINDINGS: Brain: Mild cortical volume loss. Mild hypodensities in supratentorial periventricular and subcortical white matter, consistent with microangiopathy. No intracranial hemorrhage. New 5 mm low-density lacunar infarct in the right thalamus. Cerebral ventricles: No ventriculomegaly. Paranasal sinuses: Mucosal thickening in the paranasal sinuses. Small air-fluid levels in the maxillary sinuses. Mastoid air cells: Visualized mastoid air cells are well aerated. Bones/joints: Unremarkable. No acute fracture. Soft tissues: Unremarkable. Vasculature: No hyperdense artery. CT/CT head wo con* [id number] IMPRESSION: 1. Small lacunar infarct in the right thalamus, this is most likely chronic but new since the prior study. 2. Mild microangiopathy.
[2023-07-26 21:37] LABS: Troponin(5th) Baseline 9 ng/L (0-10)
[2023-07-26 21:39] VITALS: BP 208/141; PULSE 87
[2023-07-26] MEDS: nitroglycerin 1 gm/inch oint Pkt 1 INCH TOPICAL (21:39)
[2023-07-26] MEDS: labetalol 5 mg/mL SDV 20mL 20 MG IVP (21:40)
[2023-07-26 21:45] LABS: Alanine Aminotransferase 19 U/L (0-33); Albumin Level 4.3 g/dL (3.5-5.2); Alkaline Phosphatase 148 U/L (35-105); Anion Gap 15.8 (5-19); Aspartate Amino Transferase 16 U/L (0-32); Blood Urea Nitrogen 8 mg/dL (6-20); Calcium 9.6 mg/dL (8.5-10.5); Carbon Dioxide 25 mmol/L (22-29); Chloride 103 mmol/L (98-107); Globulin 3.3 g/dL (1.3-4.6); Glomerular Filtration Rate 102.3 mL/min (90-130); Glucose 175 mg/dL (65-115); NT Pro B Type Natriuretic Pept 409 pg/mL (0-125); Osmolality Calculated 293 mOsm/kg (285-295); Potassium 3.8 mmol/L (3.5-5.1); Sodium 140 mmol/L (136-145); Total Bilirubin 0.4 mg/dL (0.15-1.2); Total Protein 7.6 g/dL (6.6-8.7)
[2023-07-26] MEDS: ondansetron 2 mg/ML SDV 2 mL 4 MG IVP (21:45)
[2023-07-26 21:46] LABS: Add Urine Microscopic? YES; Bacteria Urine TRACE /hpf; Bilirubin Urine Neg (Negative); Blood Urine Neg (Negative); Glucose Urine UA Norm (Normal); Ketones Urine Negative (Negative); Leukocyte Esterase Urine Negative (Negative); Mucus Urine 2+ /hpf; Nitrate Urine Negative (Negative); Protein Urine Trace (Negative); RBC Urine 0-4 /hpf (0-2); Squamous Epithelial Cell Urine 0-4 /hpf (0-5); Urine Appearance Clear (CLEAR); Urine Color Yellow (Yellow); Urobilinogen Urine Norm (Negative); WBC Urine 0-4 /hpf (0-5); pH Urine 7 (5-7)
[2023-07-26] MEDS: enalaprilat 2.5 mg/2 mL SDV 1.25 MG IVP (21:47)
[2023-07-26 21:49] VITALS: RESP 17; O2SAT 94
[2023-07-26] MEDS: morphine 4 mg/mL SDV 1 mL IVP (21:49)
[2023-07-26 22:11] VITALS: BP 162/90; PULSE 89; RESP 18; O2SAT 92
[2023-07-26 22:14] LABS: Amphetamines Screen Urine Negative (Negative); Barbiturates Screen Urine Negative (Negative); Benzodiazepines Screen Urine Negative (Negative); Cocaine Screen Urine Negative (Negative); Opiate Screen Urine Negative (Negative); PCP Screen Urine Negative (Negative); THC Screen Urine Positive (Negative)
[2023-07-26 22:34] VITALS: BP 167/84; PULSE 77; RESP 16; O2SAT 92
[2023-07-26] MEDS: LORazepam 2 mg/mL INJ 10 mL MDV IV (22:54)
[2023-07-26 23:04] VITALS: BP 158/87; PULSE 84; RESP 16; O2SAT 94
--- NOTE | 2023-07-26 23:12 | ECG_ITS ---
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 Measurements Intervals [place] Rate: 86 P: 107 SD: 132 QRS: 29 QRSD: 102 T: 54 QT: 401 QTc: 480 Interpretive Statements SINUS RHYTHM LEFT ATRIAL ENLARGEMENT [-0.15mV P-WAVE IN V1/V2] PROBABLE INFERIOR MYOCARDIAL INFARCTION , PROBABLY OLD [35 ms Q WAVE IN II/aVF] ANTEROLATERAL MYOCARDIAL INFARCTION , OF INDETERMINATE AGE [40+ ms Q WAVE IN I/aVL/V3-V6] Compared to ECG 12/14/2020 21:33:50 Myocardial infarct finding now present Electronically Signed On 07-28-2023 7:56:11 ESTIMATOR LUMBER by Galileo Peterson M.D. [id number]
[2023-07-26 23:23] LABS: Troponin 5 2HR 11.29 ng/L (0-10); Troponin 5 2HR Delta 2.29 ABS# (0-10)
[2023-07-26] MEDS: amlodipine 10 mg Tablet PO (23:45)
[2023-07-27 01:22] VITALS: BP 136/92; PULSE 77; O2SAT 95
== END 2023-07-27 01:32 | disposition home or self-care (01) ==
PROVIDERS: Emergency Provider Emergency Medicine; PCP Nurse Practitioner
DX: R07.9 Chest pain, unspecified (principal); I16.0 Hypertensive urgency; Z79.4 Long term (current) use of insulin; Z87.891 Personal history of nicotine dependence; J44.9 Chronic obstructive pulmonary disease, unspecified; E11.9 Type 2 diabetes mellitus without complications; E78.5 Hyperlipidemia, unspecified
CPT/HCPCS: 70450; 71045; 80053; 80306; 81001; 83880; 84484; 85025; 85610; 85730; 93005; 96374; 96375; 99285; J2060; J2270; J2405; J3490

== ENCOUNTER → 2023-07-30 12:30 | Outpatient (BNVA) | payer MEDICARE, MEDICAID, SELFPAY | PROVIDERS: PCP Nurse Practitioner; Visit Provider Nurse Practitioner | DX: I10 Essential (primary) hypertension (principal); I20.9 Angina pectoris, unspecified; J44.9 Chronic obstructive pulmonary disease, unspecified; K12.2 Cellulitis and abscess of mouth; F44.5 Conversion disorder with seizures or convulsions; E11.65 Type 2 diabetes mellitus with hyperglycemia; Z79.4 Long term (current) use of insulin; K58.1 Irritable bowel syndrome with constipation; R11.0 Nausea; F51.5 Nightmare disorder; F43.10 Post-traumatic stress disorder, unspecified; E78.2 Mixed hyperlipidemia; F41.9 Anxiety disorder, unspecified; F32.9 Major depressive disorder, single episode, unspecified | CPT/HCPCS: 80053; 83036; 84439; 84443; 84481 ==

== ENCOUNTER → 2023-10-23 11:57 | Outpatient (BNVA) | payer MEDICARE, MEDICAID, SELFPAY | PROVIDERS: PCP Nurse Practitioner; Visit Provider Nurse Practitioner | DX: M25.572 Pain in left ankle and joints of left foot (principal); E11.9 Type 2 diabetes mellitus without complications | CPT/HCPCS: 73610; 80053; 80061; 83036 ==

== ENCOUNTER → 2023-12-03 15:00 | Outpatient (BNVA) | payer MEDICARE, MEDICAID, SELFPAY | PROVIDERS: PCP Nurse Practitioner; Visit Provider Internal Medicine Cardiovascular Disease | DX: I25.118 Atherosclerotic heart disease of native coronary artery with other forms of angina pectoris (principal); E78.2 Mixed hyperlipidemia; I10 Essential (primary) hypertension; F31.0 Bipolar disorder, current episode hypomanic; E11.65 Type 2 diabetes mellitus with hyperglycemia; F60.3 Borderline personality disorder; G40.909 Epilepsy, unspecified, not intractable, without status epilepticus; Z79.4 Long term (current) use of insulin | CPT/HCPCS: 99205 ==

== ENCOUNTER 2023-12-06 01:03 | Emergency (ER) | payer MEDICARE, MEDICAID, SELFPAY ==
[2023-12-06 01:07] VITALS: BP 194/101; PULSE 81; RESP 23; TEMP 36.9; O2SAT 89; BMI 41.1
--- NOTE | 2023-12-06 01:10 | ECG_ITS ---
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 Measurements Intervals [place] Rate: 79 P: 50 WV: 121 QRS: 22 QRSD: 100 T: 76 QT: 383 QTc: 441 Interpretive Statements SINUS RHYTHM Compared to ECG 07/26/2023 23:12:23 Atrial abnormality no longer present Myocardial infarct finding no longer present Electronically Signed On 12-06-2023 20:20:28 CDT by Loren Ledezma M.D. [email or web address]
--- NOTE | 2023-12-06 01:12 | XRR_ITS ---
PROCEDURE INFORMATION: Exam: XR Chest Exam date and time: 12/06/2023 1:19 AM Age: 58 years old Clinical indication: Shortness of breath; Left-sided; Prior surgery; Surgery date: 6+ months; Surgery type: Coronary stents; Patient HX: C/O left sided chest pain with SOB; Additional info: Chest pain dyspnea TECHNIQUE: Imaging protocol: Radiologic exam of the chest. Views: 1 view. COMPARISON: CR (CHEST, ) 07/26/2023 9:11 PM FINDINGS: Lungs: No consolidation or pulmonary edema. Pleural spaces: No pleural effusion. No pneumothorax. Heart/Mediastinum: Cardiomediastinal silhouette is normal in size. Bones/joints: No acute fractures. XR/XR chest 1V portable [id number] IMPRESSION: No acute findings.
--- NOTE | 2023-12-06 01:21 | ED_ITS ---
HPI - Chest Pain 2 General: Chief Complaint: Chest Pain Stated Complaint: Chest pain,SOB Time Seen by Provider: 12/06/23 01:12 History of Present Illness: Patient presents to the ER with complaints of chest pain that started yesterday morning. 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 Patient has a history of nonepileptic seizures and she had 1 at beginning of exam and cannot provide us any more history or details. Her stated that she was complaining of something was like it was sitting on her chest. She had her cardiology started her on some new medicine but they did not know what it was. Patient does have a history of COPD and wears 2 L at baseline. Review of Systems 2 General: Reports: 10 or more systems reviewed and unremarkable except in HPI and below PFSH ED 2 PFSH: Medical History Helicobacter pylori gastritis Diabetes mellitus with hyperglycemia, with long-term current use of insulin Nightmares associated with chronic post-traumatic stress disorder Chronic neck pain COPD (chronic obstructive pulmonary disease) Dysphagia Epigastric pain Anxiety and depression Benign hypertension Hyperlipidemia, unspecified Surgical History History of tonsillectomy History of hysterectomy for cancer History of appendectomy Family History Other Cancer Heart disease Hypertension Stroke Denies family history of Anesthesia complication Bleeding disorder Social History Smoking and tobacco/nicotine status: former use of tobacco/nicotine Second hand smoke exposure: Yes Alcohol intake: never Substance/Drug Use: unknown Caregiver/support person: No Lives independently: Yes Household members: other Marital status: / service: No Current occupational status: unemployed Do you think of yourself as: Straight/Heterosexual Current gender identity: Female Physical Exam 2 Const: COMMON NORMALS: no acute distress, average body habitus, patient oriented x3, no limitations, healthy appearing, alert and well nourished HENMT: COMMON NORMALS: normocephalic, atraumatic, hearing grossly normal bilaterally, Normal external nose present, moist oral mucous membranes and oropharynx normal HEAD & SCALP: normocephalic and atraumatic NOSE: Normal external nose present Neck/C-Spine: COMMON NORMALS: no JVD Chest: COMMONS NORMALS: normal inspection of the chest and normal palpation of entire chest wall Resp: COMMON NORMALS: normal respiratory effort, No retractions, No use of accessory muscles and clear to auscultation bilaterally AUSCULTATION: clear to auscultation bilaterally Cardio: COMMON NORMALS: no JVD, regular rate, regular rhythm, S1 normal heart sound present, S2 normal heart sound present, No gallops present (Cardio), No clicks present (Cardio), No murmurs present (Cardio) and No rub (Cardio) R ATE: regular rate RHYTHM: regular rhythm HEART SOUNDS: S1 normal heart sound present and S2 normal heart sound present GI: COMMON NORMALS: Normal to inspection, nondistended, normoactive bowel sounds present, Soft to palpation, non-tender, No hepatosplenomegaly present and no masses PALPATION: Yes Soft to palpation and Yes No hepatosplenomegaly present Neuro: COMMON NORMALS: patient oriented x3 SENSORIUM/ORIENTATION: Yes alert Course 2 Vital Signs: Vital signs: Vital Signs Temperature 98.4 F 12/06/23 01:07 Pulse Rate 80 12/06/23 04:01 Respiratory Rate 21 H 12/06/23 04:01 Blood Pressure 156/85 12/06/23 04:01 Pulse Oximetry 99 12/06/23 02:25 Oxygen Delivery Me thod Nasal Cannula 12/06/23 02:25 Oxygen Flow Rate 2 12/06/23 02:25 MDM - Chest Pain Medical Decision Making Patient was worked up in a standard cardiac fashion with serial labs chest x-ray and EKGs, chest x-ray showed no acute findings, troponin baseline was 8 troponin at 2 hours was 7 4-1 delta BNP of 359, patient's glucose was high at 483 she was given 10 units of insulin and her blood sugar come down to around the 250 range. Upon recheck patient was feeling much better and her said she was ready to go home. Patient be discharged home. Lab Data 12/06/23 01:24 12/06/23 01:24 Radiology Impressions Chest X-Ray 12/06/23 01:12 IMPRESSION: No acute findings. Laboratory Results WBC 10.63 10^3/uL (3.29-11.43) 12/06/23 01:24 RBC 5.06 10^6/uL (3.85-5.65) 12/06/23 01:24 Hgb 15.20 g/dL (11.27-16.99) 12/06/23 01:24 Hct 44.6 % (36-47) 12/06/23 01:24 MCV 88.1 fl (85-98) 12/06/23 01:24 MCH 30.0 pg (27-33) 12/06/23 01:24 MCHC 34.1 g/dL (30-55) 12/06/23 01:24 RDW 12.0 % (12.1-15.1) L 12/06/23 01:24 Plt Count 229 10^3/cmm (157-399) 12/06/23 01:24 MPV 11.6 fL (7.4-10.4) H 12/06/23 01:24 Neut % (Auto) 49.2 % 12/06/23 01:24 Lymph % (Auto) 39.3 % 12/06/23 01:24 Mccracken % (Auto) 5.9 % 12/06/23 01:24 Eos % (Auto) 4.4 % 12/06/23 01:24 Baso % (Auto) 0.8 % 12/06/23 01:24 Neut # (Auto) 5.23 10^3/uL (1.8-7.7) 12/06/23 01: Lymph # (Auto) 4.2 10^3/uL (0.8-4.8) 12/06/23 01:24 Mccracken # (Auto) 0.6 10^3/uL (0.2-0.9) 12/06/23 01:24 Eos # (Auto) 0.5 10^3/uL (0.0-0.8) 12/06/23 01:24 Baso # (Auto) 0.1 10^3/uL (0.0-0.1) 12/06/23 01:24 Nucleated RBC % (auto) 0 % 12/06/23 01:24 Nucleated RBCs # 0.0 /100WBC 12/06/23 01:24 Sodium 135 mmol/L (136-145) L 12/06/23 01:24 Potassium 4.2 mmol/L (3.5-5.1) 12/06/23 01:24 Chloride 99 mmol/L (98-107) 12/06/23 01:24 Carbon Dioxide 26 mmol/L (22-29) 12/06/23 01:24 Anion Gap 14.2 (5-19) 12/06/23 01:24 BUN 13 mg/dL (8-23) 12/06/23 01:24 Creatinine 0.7 mg/dL (0.5-0.9) 12/06/23 01:24 GFR Calculation 85.4 mL/min (90-130) L 12/06/23 01:24 Glucose 483 mg/dL (65-115) H 12/06/23 01:24 POC Glucose 274 mg/dL (70-110) H 12/06/23 03:57 Calculated Osmolality 301 mOsm/kg (285-295) H 12/06/23 01:24 Calcium 9.7 mg/dL (8.5-10.5) 12/06/23 01:24 Total Bilirubin 0.2 mg/dL (0.15-1.2) 12/06/23 01:24 AST 20 U/L (0-32) 12/06/23 01:24 ALT 34 U/L (0-33) H 12/06/23 01:24 Alkaline Phosphatase 231 U/L (35-105) H 12/06/23 01:24 Troponin T Baseline 8 ng/L (0-10) 12/06/23 01:24 Troponin T 120 Minute 7.02 ng/L (0-10) 12/06/23 03:22 Delta Troponin T -0.98 ABS# (0-10) L 12/06/23 03:22 NT-Pro-B Natriuret Pep 359 pg/mL (0-125) H 12/06/23 01:24 Total Protein 7.2 g/dL (6.6-8.7) 12/06/23 01:24 Albumin 4.1 g/dL (3.5-5.2) 12/06/23 01:24 Globulin 3.1 g/dL (1.3-4.6) 12/06/23 01:24 Urine Color Yellow (Yellow) 12/06/23 03:13 Urine Appearance Clear (CLEAR) 12/06/23 03:13 Urine pH 5 (5-7) 12/06/23 03:13 Ur Specific [place] 1.010 (1.005-1.030) 12/06/23 03:13 Urine Protein Neg (Negative) 12/06/23 03:13 Urine Glucose (UA) 4+ (Normal) H 12/06/23 03:13 Urine Ketones Negative (Negative) 12/06/23 03:13 Urine Blood Neg (Negative) 12/06/23 03:13 Urine Nitrate Negative (Negative) 12/06/23 03:13 Urine Bilirubin Neg (Negative) 12/06/23 03:13 Urine Urobilinogen Neg mg/dL (Negative) 12/06/23 03:13 Ur Leukocyte Esterase Negative (Negative) 12/06/23 03:13 Urine Opiates Screen Negative ng/mL (Negative) 12/06/23 03:13 Ur Barbiturates Screen Negative ng/mL (Negative) 12/06/23 03:13 Ur Phencyclidine Scrn Negative ng/mL (Negative) 12/06/23 03:13 Ur Amphetamines Screen Negative ng/mL (Negative) 12/06/23 03:13 U Benzodiazepines Scrn Negative ng/mL (Negative) 12/06/23 03:13 Urine Cocaine Screen Negative ng/mL (Negative) 12/06/23 03:13 U Marijuana (THC) Screen Positive ng/mL (Negative) H 12/06/23 03:13 All radiology interpretation(s) finalized by discharge Discharge Plan Discharge Patient Disposition: Home Clinical Impression: Chest pain, Hyperglycemia due to diabetes mellitus Condition: Stable Prescriptions: No Action hydroxyzine pamoate 25 mg capsule 25 mg PO TID PRN (Reason: Itching) (DME) nebulizers Misc See Rx Instructions .ROUTE .MEDSUPPLY Qty: 1 Rx Instructions: As directed (DME) OXYGEN @ 2L PER N/C See Rx Instructions .Route .MEDSUPPLY Qty: 1 0RF Rx Instructions: As directed pantoprazole 40 mg tablet,delayed release (DR/EC) 40 mg PO DAILY Qty: 30 5RF Hold Instructions: Resume on 07/24/22. venlafaxine [Effexor XR] 75 mg capsule,extended release 24hr 75 mg PO QAM Qty: 30 2RF albuterol sulfate 2.5 mg /3 mL (0.083 %) solution for nebulization 2.5 mg INHALATION Q4H PRN (Reason: Shortness Of Breath) Qty: 180 2RF albuterol sulfate 90 mcg/actuation HFA aerosol inhaler 2 puff inhalation Q6H PRN (Reason: shortness of breath or wheezing) Qty: 8.5 2RF amlodipine 10 mg tablet 10 mg PO DAILY Qty: 30 2RF Symbicort 160-4.5 mcg/actuation HFA aerosol inhaler 2 puff INHALATION BID@0700,2200 Qty: 10.2 2RF chlorhexidine gluconate [Peridex] 0.12 % mouthwash 15 ml buccal BID Qty: 1500 0RF clonazepam 1 mg tablet 1 mg PO BID Qty: 60 2RF docusate sodium [Colace] 100 mg capsule 100 mg PO DAILY PRN (Reason: Constipation) Qty: 60 2RF furosemide 20 mg tablet 20 mg PO BID Qty: 60 2RF insulin aspart U-100 [Novolog FlexPen U-100 Insulin] 100 unit/mL (3 mL) insulin pen See Rx Instructions SUBCUT TID Qty: 15 2RF Rx Instructions: 110-129=3U,130-150=6U, 151-200=9U, 201-250=12U,251-300=15U,301-350=18U,351-400=21U,>400=24U SUBCUT three times daily; insulin degludec [Tresiba FlexTouch U-100] 100 unit/mL (3 mL) insulin pen 90 unit SUBCUT BID Qty: 54 2RF isosorbide dinitrate 30 mg tablet 30 mg PO BID Qty: 60 2RF Rx Instructions: allow nitrate-free interval of 12-14 hrs per 24-hr period Probiotic Digestive Care 20 billion cell capsule See Rx Instructions PO .2 times day Qty: 60 2RF Rx Instructions: 20 billion cell PO .2 times day; Linzess 290 mcg capsule 290 mcg PO QAM Qty: 30 2RF meclizine 25 mg tablet,chewable 25 mg PO TID PRN (Reason: nausea) Qty: 90 0RF metoprolol succinate [Toprol XL] 100 mg tablet extended release 24 hr 100 mg PO DAILY Qty: 30 2RF prazosin 1 mg capsule 1 mg PO BEDTIME@2200 Qty: 30 2RF Daliresp 500 mcg tablet 500 mcg PO DAILY@2200 Qty: 30 2RF Crestor 40 mg tablet 40 mg PO DAILY@2200 Qty: 30 2RF valsartan [Diovan] 320 mg tablet 320 mg PO DAILY Qty: 30 2RF zonisamide 100 mg capsule 100 mg PO TID@07,12,22 Qty: 90 2RF Mounjaro 12.5 mg/0.5 mL pen injector 12.5 mg SUBCUT .weekly Qty: 2 2RF hydralazine 100 mg tablet 100 mg PO TID Qty: 90 5RF nitroglycerin 0.4 mg tablet, sublingual 0.4 mg sublingual Q5M PRN (Reason: chest pain) 30 Days Qty: 30 3RF Rx Instructions: until response; do not exceed 3 doses per episode (DME) FreeStyle Kevin 2 Sensor Kit See Rx Instructions .Route Qty: 2 5RF Rx Instructions: change every 14 days (DME) pen needle, diabetic 33 gauge x 5/32 needle See Rx Instructions .ROUTE .MEDSUPPLY Qty: 200 5RF Rx Instructions: 4 times daily (DME) FreeStyle Kevin 2 Crawford Misc See Rx Instructions .Route Qty: 1 0RF Rx Instructions: As directed (DME) ReliOn Prime Test Strips Strip See Rx Instructions .Route Qty: 100 5RF Rx Instructions: 3 times day as needed (DME) lancets Misc See Rx Instructions .ROUTE .MEDSUPPLY Qty: 100 5RF Rx Instructions: three times day as needed multivitamin [Multiple Vitamins] Tablet 1 tab PO DAILY@0700 Hair, Skin, Nails with Biotin 7.5-7.5-1,250 mg-unit-mcg Tablet,Chewable 1 tab PO DAILY@0700 Anusol-HC 2.5 % cream with perineal applicator 1 applic NE QID 10 Days Qty: 30 1RF Rx Instructions: May repeat for another 10 days if no resolution Discharge Orders: Discharge ED (Routine); Ordered 12/06/23 Ordered By: Channing Escamilla Referrals: Pedro Luis Mata FN[facility]andyC [Primary Care Provider] - 1 week Patient Instructions: Chest Pain (ED), Hyperglycemia Activity Restrictions/Additional Instructions: Your evaluation in the ER including lab work chest x-ray and EKGs did not show any acute coronary cause of your chest pain. Is felt to be noncardiac in nature your blood sugar was highly elevated you are given 10 units of insulin which improved your blood sugar. Please follow-up with your family practice physician within the next 7 days for further evaluation and treatment as needed. If your chest pain returns please feel free to return to the ER. Coding Level of Care Code ED Gas Line Installer Supervisor for Kota Neely
[2023-12-06] MEDS: hyDRALAzine 20 mg/mL INJ 1 mL IVP (01:33)
[2023-12-06 01:34] LABS: Basophils # 0.1 10^3/uL (0.0-0.1); Basophils % 0.8 %; Eosinophils # 0.5 10^3/uL (0.0-0.8); Eosinophils % 4.4 %; Hematocrit 44.6 % (36-47); Lymphocytes # 4.2 10^3/uL (0.8-4.8); Lymphocytes % 39.3 %; Mean Corpuscular HGB Conc 34.1 g/dL (30-55); Mean Corpuscular Volume 88.1 fl (85-98); Mean Platelet Volume 11.6 fL (7.4-10.4); Monocytes # 0.6 10^3/uL (0.2-0.9); Monocytes % 5.9 %; Neutrophils # 5.23 10^3/uL (1.8-7.7); Neutrophils % 49.2 %; Nucleated Red Blood Cells % 0 %; Platelet Count 229 10^3/cmm (157-399); Red Blood Count 5.06 10^6/uL (3.85-5.65); White Blood Count 10.63 10^3/uL (3.29-11.43)
[2023-12-06 01:36] VITALS: BP 177/100; PULSE 77; RESP 16; O2SAT 99
[2023-12-06 01:56] LABS: Troponin(5th) Baseline 8 ng/L (0-10)
[2023-12-06 02:04] LABS: Alanine Aminotransferase 34 U/L (0-33); Albumin Level 4.1 g/dL (3.5-5.2); Alkaline Phosphatase 231 U/L (35-105); Blood Urea Nitrogen 13 mg/dL (8-23); Calcium 9.7 mg/dL (8.5-10.5); Carbon Dioxide 26 mmol/L (22-29); Chloride 99 mmol/L (98-107); Creatinine Clr Calc Pharmacy 103.0319; Globulin 3.1 g/dL (1.3-4.6); Glomerular Filtration Rate 85.4 mL/min (90-130); Glucose 483 mg/dL (65-115); NT Pro B Type Natriuretic Pept 359 pg/mL (0-125); Osmolality Calculated 301 mOsm/kg (285-295); Sodium 135 mmol/L (136-145); Total Bilirubin 0.2 mg/dL (0.15-1.2); Total Protein 7.2 g/dL (6.6-8.7)
[2023-12-06 02:07] VITALS: BP 174/90; PULSE 82; RESP 18; O2SAT 99
[2023-12-06 02:08] LABS: Anion Gap 14.2 (5-19); Aspartate Amino Transferase 20 U/L (0-32); Potassium 4.2 mmol/L (3.5-5.1)
[2023-12-06 02:25] VITALS: BP 174/90; PULSE 79; RESP 22; O2SAT 99
[2023-12-06] MEDS: insulin regular-human 100 units/1 mL 10 UNIT IVP (02:27)
[2023-12-06 03:23] LABS: Add Urine Microscopic? NO; Charge for UA Resulting for Rev
[2023-12-06 03:27] LABS: Bilirubin Urine Neg (Negative); Blood Urine Neg (Negative); Glucose Urine UA 4+ (Normal); Ketones Urine Negative (Negative); Leukocyte Esterase Urine Negative (Negative); Nitrate Urine Negative (Negative); Protein Urine Neg (Negative); Urine Appearance Clear (CLEAR); Urine Color Yellow (Yellow); Urobilinogen Urine Neg (Negative); pH Urine 5 (5-7)
[2023-12-06 03:36] LABS: Amphetamines Screen Urine Negative (Negative); Barbiturates Screen Urine Negative (Negative); Benzodiazepines Screen Urine Negative (Negative); Cocaine Screen Urine Negative (Negative); Opiate Screen Urine Negative (Negative); PCP Screen Urine Negative (Negative); THC Screen Urine Positive (Negative)
[2023-12-06 03:51] LABS: Troponin 5 2HR 7.02 ng/L (0-10); Troponin 5 2HR Delta -0.98 ABS# (0-10)
--- NOTE | 2023-12-06 03:55 | ECG_ITS ---
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 Measurements Intervals [place] Rate: 81 P: 52 NC: 136 QRS: 15 QRSD: 98 T: 59 QT: 397 QTc: 463 Interpretive Statements SINUS RHYTHM Compared to ECG 12/06/2023 01:10:19 No significant changes Electronically Signed On 12-06-2023 20:26:40 CDT by Loren Ledezma M.D. [email or web address] Response [email or web address] Bank of Commercecleveland [facility].[employer]/[id number]
[2023-12-06 04:01] VITALS: BP 156/85; PULSE 80; RESP 21
[2023-12-06 04:01] LABS: Glucose Point of Care 274 mg/dL (70-110)
[2023-12-06] MEDS: LORazepam 1 mg Tablet PO (04:38)
[2023-12-06 04:44] VITALS: BP 156/86; PULSE 84; RESP 16; O2SAT 92
== END 2023-12-06 04:44 | disposition home or self-care (01) ==
PROVIDERS: Emergency Provider Emergency Medicine; PCP Nurse Practitioner
DX: R07.9 Chest pain, unspecified (principal); E11.65 Type 2 diabetes mellitus with hyperglycemia; Z79.85 Long-term (current) use of injectable non-insulin antidiabetic drugs; Z79.4 Long term (current) use of insulin; Z87.891 Personal history of nicotine dependence; J44.9 Chronic obstructive pulmonary disease, unspecified; I10 Essential (primary) hypertension; E78.5 Hyperlipidemia, unspecified
CPT/HCPCS: 36415; 36416; 71045; 80053; 80306; 81003; 82962; 83880; 84484; 85025; 93005; 96374; 96375; 99285; J0360; J1815

== ENCOUNTER 2024-01-24 14:41 | Emergency (ER) | payer MEDICARE, MEDICAID, SELFPAY ==
[2024-01-24 14:50] VITALS: BP 102/66; PULSE 108; RESP 22; TEMP 36.6; O2SAT 96; BMI 28.3
--- NOTE | 2024-01-24 15:07 | PC.NURSE ---
PER PATIENT REQUEST, PATIENT SIGNIFICANT OTHER TO WAIT IN THE WAITING ROOM. PATIENT IS UNSURE IF SHE WANTS HIM TO COME BACK TO HER ROOM. PATIENT STATES HE JUST MAKES THINGS WORSE. THIS NURSE ASKED PATIENT IF SHE FEELS SAFE AT HOME WITH SIGNIFICANT OTHER WHILE PATIENT WAS IN TRIAGE. PATIENT HESITATED WHEN SAYING YES. THIS NURSE NOTIFIED PRIMARY NURSE TAKING OVER, ANNIE CASTAÑEDA, OF CONCERNS OF SAFETY WITH PATIENT. PRIMARY NURSE VERBALIZED UNDERSTANDING. REGISTRATION AND DIRECT MAIL MARKETER NOTIFIED OF PATIENT VISITING REQUESTS.
[2024-01-24 15:14] VITALS: BP 118/76; PULSE 98; O2SAT 99
--- NOTE | 2024-01-24 15:34 | XRR_ITS ---
PROCEDURE INFORMATION: Exam: XR Chest Exam date and time: 01/24/2024 3:40 PM Age: 58 years old Clinical indication: Chest wall pain; Prior surgery; Surgery date: 1-6 months; Surgery type: Cardiac stents 12-09-23 & 12-17-23; Patient HX: PT C/O of feeling like her chest was beating out of her chest last night. PT states chest pain was in the middle of her chest. PT states she is unable to use her left arm. PT states she wears 2l of oxygen at all times but has it on 5l in triage due to feeling short of breath. Nasal cannula is not consistently in PT nose in triage. PT states she does have a history of anxiety. TECHNIQUE: Imaging protocol: Radiologic exam of the chest. Views: 1 view. COMPARISON: CR XR chest 1V portable [id number] 12/06/2023 1:19 AM FINDINGS: Lungs: Bibasilar atelectatic lung changes. Pleural spaces: Unremarkable. No pleural effusion. No pneumothorax. Heart/Mediastinum: Unremarkable. No cardiomegaly. Bones/joints: Narrowing of the left glenohumeral joints with minimal subchondral sclerosis. Chronic multilevel degenerative changes of the thoracic vertebrae. XR/XR chest 1V portable [id number] IMPRESSION: 1. No acute interval changes. 2. Bibasilar atelectatic lung changes
[2024-01-24 15:40] LABS: Basophils # 0.1 10^3/uL (0.0-0.1); Basophils % 0.6 %; Eosinophils # 0.3 10^3/uL (0.0-0.8); Eosinophils % 2.4 %; Hematocrit 44.4 % (36-47); Lymphocytes # 2.1 10^3/uL (0.8-4.8); Lymphocytes % 16.9 %; Mean Corpuscular HGB Conc 33.1 g/dL (30-55); Mean Corpuscular Hemoglobin 29.4 pg (27-33); Mean Corpuscular Volume 88.8 fl (85-98); Mean Platelet Volume 10.6 fL (7.4-10.4); Monocytes # 0.6 10^3/uL (0.2-0.9); Monocytes % 5.2 %; Neutrophils % 74.7 %; Nucleated Red Blood Cells % 0 %; Platelet Count 384 10^3/cmm (157-399); Red Cell Distribution Width 12.2 % (12.1-15.1); White Blood Count 12.33 10^3/uL (3.29-11.43)
[2024-01-24 15:47] LABS: INR 1.02 (0.8-1.2)
[2024-01-24 15:52] LABS: Alanine Aminotransferase 15 U/L (0-33); Albumin Level 4.3 g/dL (3.5-5.2); Alkaline Phosphatase 138 U/L (35-105); Anion Gap 20.8 (5-19); Aspartate Amino Transferase 13 U/L (0-32); Blood Urea Nitrogen 13 mg/dL (8-23); Carbon Dioxide 24 mmol/L (22-29); Chloride 100 mmol/L (98-107); Creatinine Clr Calc Pharmacy 74.0884; Glomerular Filtration Rate 73.2 mL/min (90-130); Glucose 248 mg/dL (65-115); Lipase 24 U/L (13-60); Osmolality Calculated 300 mOsm/kg (285-295); Potassium 3.8 mmol/L (3.5-5.1); Sodium 141 mmol/L (136-145); Total Bilirubin 0.6 mg/dL (0.15-1.2); Total Protein 7.3 g/dL (6.6-8.7)
--- NOTE | 2024-01-24 15:52 | ECG_ITS ---
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 Measurements Intervals [place] Rate: 89 P: 74 [place]: 132 QRS: -44 QRSD: 90 T: 70 QT: 390 QTc: 475 Interpretive Statements SINUS RHYTHM POSSIBLE LEFT ATRIAL ENLARGEMENT [-0.1mV P-WAVE IN V1/V2] LEFT AXIS DEVIATION [QRS AXIS < -30] Compared to ECG 12/06/2023 03:55:44 Left-axis deviation now present Electronically Signed On 01-25-2024 16:03:29 CDT by Nora Bullock M.D. [email or web address].Omiciaummc grenadaAnesthesia Medical Groupriverside methodist hospital.[employer]/store/[id number]
[2024-01-24 15:53] LABS: Troponin(5th) Baseline 15 ng/L (0-10)
--- NOTE | 2024-01-24 15:57 | W.ED.CHESTPA ---
HPI - Chest Pain General: Chief Complaint: Chest Pain Stated Complaint: chest pain Time Seen by Provider: 01/24/24 15:01 History of Present Illness: 58-year-old female presents to the emergency department chief complaint of having ongoing chest pain has been ongoing since late last night patient reports a prior history of cardiac issues with multiple stents placed she reports that she has been started on Imdur as well as nitro she did not take any of these prior to arrival patient endorses midsternal chest pain rating down the left arm she reports mild dizziness secondary to this reports no palpitations but reports shortness of breath patient reports no other associated symptoms. Patient does endorse a prior history of being in the seen in the ER before for panic attacks. Associated symptoms: Deny abdominal pain, dyspnea, fever(s), nausea, palpitations or vomiting Review of Systems General: Reports: 10 or more systems reviewed and unremarkable except in HPI and below Const: Denies: fever(s), chills, fatigue or malaise Eyes: Denies: change in vision or blurry vision Card: Reports: chest pain, lightheadedness and dyspnea on exertion; Denies: palpitations Resp: Denies: dyspnea or productive cough GI: Denies: abdominal pain, nausea or vomiting : Denies: flank pain Musc: Denies: extremity pain or extremity swelling Skin/Breast: Denies: rash or pruritus Neuro: Denies: headache(s) Psych: Denies: anxiety or depression Jh/Lymph: Denies: easy bleeding All/Imm: Denies: urticaria, throat swelling or facial swelling PFS ED PFSH: Medical History Helicobacter pylori gastritis Diabetes mellitus with hyperglycemia, with long-term current use of insulin Nightmares associated with chronic post-traumatic stress disorder Chronic neck pain COPD (chronic obstructive pulmonary disease) Dysphagia Epigastric pain Anxiety and depression Benign hypertension Hyperlipidemia, unspecified Surgical History History of heart artery stent 12/09/23 and 12/17/23 [place], [place]. History of tonsillectomy History of hysterectomy for cancer History of appendectomy Family History Other Cancer Heart disease Hypertension Stroke Denies family history of Anesthesia complication Bleeding disorder Social History Smoking and tobacco/nicotine status: former use of tobacco/nicotine Second hand smoke exposure: Yes Alcohol intake: never Substance/Drug Use: unknown Caregiver/support person: No Lives independently: Yes Household members: other Marital status: / service: No Current occupational status: unemployed Do you think of yourself as: Straight/Heterosexual Current gender identity: Female Physical Exam Const: COMMON NORMALS: no acute distress, patient oriented x3 and healthy appearing OTHER: pt appears very anxious. HENMT: COMMON NORMALS: normocephalic and atraumatic HEAD & SCALP: normocephalic and atraumatic Eye: COMMON NORMALS: Equal, round and reactive pupils present and EOMs intact bilaterally PUPIL: Yes Equal, round and reactive pupils present Neck/C-Spine: COMMON NORMALS: full ROM, supple and no JVD Lymph: LYMPHATIC: no lymphadenopathy noted Chest: COMMONS NORMALS: normal inspection of the chest and normal palpation of entire chest wall Resp: COMMON NORMALS: normal respiratory effort, No retractions and clear to auscultation bilaterally EFFORT & INSPECTION: Yes able to speak in complete sentences and Yes symmetric chest movement AUSCULTATION: clear to auscultation bilaterally Cardio: COMMON NORMALS: no JVD and regular rhythm; negative for regular rate (Mild sinus tachycardia appreciated) RATE: abnormal rate (Mild sinus tachycardia appreciated) RHYTHM: regular rhythm GI: COMMON NORMALS: Normal to inspection, nondistended, normoactive bowel sounds present, Soft to palpation and non-tender INSPECTION: Yes normal to inspection PALPATION: Yes Soft to palpation : COMMON NORMALS: Yes no CVA tenderness BLADDER/KIDNEY EXAM: Yes no CVA tenderness Back/Pelvis: COMMON NORMALS: no CVA tenderness Extremity: COMMON NORMALS: normal to inspection and full ROM Neuro: COMMON NORMALS: patient oriented x3, CN's II-XII intact bilaterally, moves all extremities and no focal motor deficits Psych: COMMON NORMALS: mental status grossly normal, Normal thought process present, cooperative and normal affect THOUGHT PROCESS: Normal thought process present Skin: COMMON NORMALS: no rashes or lesions noted GENERAL SKIN EXAM: no rashes or lesions noted Course Vital Signs: Vital signs: Vital Signs Temperature 97.8 F 01/24/24 14:50 Pulse Rate 96 01/24/24 18:00 Respiratory Rate 18 01/24/24 18:00 Blood Pressure 152/77 01/24/24 18:00 Pulse Oximetry 99 01/24/24 18:00 Oxygen Delivery Me thod Room Air 01/24/24 18:00 Oxygen Flow Rate 5 01/24/24 18:00 MDM - Chest Pain Medical Decision Making Due to patient significant and lab work imaging will be obtained we will continue to follow. Patient troponins are flat within with the negative delta patient is remained stable condition throughout her time emergency department with no obvious EKG changes advised patient to continue her medication regimen as previously prescribed by her primary care doctor in which such doing this patient became argumentative with me. I did advise that she should take her medications as prescribed and further follow-up with her primary care doctor for further investigation and management in which when she does develop episodes of chest pain she should take her nitroglycerin as well as Imdur as prescribed. Patient was observed leaving the ER in no acute distress patient's was witness to this conversation with the patient. Lab Data 01/24/24 15:18 01/24/24 15:18 Radiology Impressions Chest X-Ray 01/24/24 15:34 IMPRESSION: 1. No acute interval changes. 2. Bibasilar atelectatic lung changes Laboratory Results WBC 12.33 10^3/uL (3.29-11.43) H 01/24/24 15:18 RBC 5.00 10^6/uL (3.85-5.65) 01/24/24 15:18 Hgb 14.70 g/dL (11.27-16.99) 01/24/24 15:18 Hct 44.4 % (36-47) 01/24/24 15:18 MCV 88.8 fl (85-98) 01/24/24 15:18 MCH 29.4 pg (27-33) 01/24/24 15:18 MCHC 33.1 g/dL (30-55) 01/24/24 15:18 RDW 12.2 % (12.1-15.1) 01/24/24 15:18 Plt Count 384 10^3/cmm (157-399) 01/24/24 15:18 MPV 10.6 fL (7.4-10.4) H 01/24/24 15:18 Neut % (Auto) 74.7 % 01/24/24 15:18 Lymph % (Auto) 16.9 % 01/24/24 15:18 Ellis % (Auto) 5.2 % 01/24/24 15:18 Eos % (Auto) 2.4 % 01/24/24 15:18 Baso % (Auto) 0.6 % 01/24/24 15:18 Neut # (Auto) 9.20 10^3/uL (1.8-7.7) H 01/24/24 15:18 Lymph # (Auto) 2.1 10^3/uL (0.8-4.8) 01/24/24 15:18 Ellis # (Auto) 0.6 10^3/uL (0.2-0.9) 01/24/24 15:18 Eos # (Auto) 0.3 10^3/uL (0.0-0.8) 01/24/24 15:18 Baso # (Auto) 0.1 10^3/uL (0.0-0.1) 01/24/24 15:18 Nucleated RBC % (auto) 0 % 01/24/24 15:18 Nucleated RBCs # 0.0 /100WBC 01/24/24 15:18 PT 13.80 SECONDS (12.1-14.9) 01/24/24 15:18 INR 1.02 (0.8-1.2) 01/24/24 15:18 Sodium 141 mmol/L (136-145) 01/24/24 15:18 Potassium 3.8 mmol/L (3.5-5.1) 01/24/24 15:18 Chloride 100 mmol/L (98-107) 01/24/24 15:18 Carbon Dioxide 24 mmol/L (22-29) 01/24/24 15:18 Anion Gap 20.8 (5-19) H 01/24/24 15:18 BUN 13 mg/dL (8-23) 01/24/24 15:18 Creatinine 0.8 mg/dL (0.5-0.9) 01/24/24 15:18 GFR Calculation 73.2 mL/min (90-130) L 01/24/24 15:18 Glucose 248 mg/dL (65-115) H 01/24/24 15:18 Calculated Osmolality 300 mOsm/kg (285-295) H 01/24/24 15:18 Calcium 9.2 mg/dL (8.5-10.5) 01/24/24 15:18 Total Bilirubin 0.6 mg/dL (0.15-1.2) 01/24/24 15:18 AST 13 U/L (0-32) 01/24/24 15:18 ALT 15 U/L (0-33) 01/24/24 15:18 Alkaline Phosphatase 138 U/L (35-105) H 01/24/24 15:18 Troponin T Baseline 15 ng/L (0-10) H 01/24/24 15:18 Troponin T 120 Minute 14.04 ng/L (0-10) H 01/24/24 17:58 Delta Troponin T -0.96 ABS# (0-10) L 01/24/24 17:58 NT-Pro-B Natriuret Pep 276 pg/mL (0-125) H 01/24/24 15:18 Total Protein 7.3 g/dL (6.6-8.7) 01/24/24 15:18 Albumin 4.3 g/dL (3.5-5.2) 01/24/24 15:18 Globulin 3.0 g/dL (1.3-4.6) 01/24/24 15:18 Lipase 24 U/L (13-60) 01/24/24 15:18 Urine Color Yellow (Yellow) 01/24/24 16:21 Urine Appearance Clear (CLEAR) 01/24/24 16:21 Urine pH 6 (5-7) 01/24/24 16:21 Ur Specific Dexter 1.010 (1.005-1.030) 01/24/24 16:21 Urine Protein Neg (Negative) 01/24/24 16:21 Urine Glucose (UA) 4+ (Normal) H 01/24/24 16:21 Urine Ketones Negative (Negative) 01/24/24 16:21 Urine Blood Neg (Negative) 01/24/24 16:21 Urine Nitrate Negative (Negative) 01/24/24 16:21 Urine Bilirubin Neg (Negative) 01/24/24 16:21 Urine Urobilinogen Norm mg/dL (Negative) 01/24/24 16:21 Ur Leukocyte Esterase Negative (Negative) 01/24/24 16:21 Urine Opiates Screen Negative ng/mL (Negative) 01/24/24 16:21 Ur Barbiturates Screen Negative ng/mL (Negative) 01/24/24 16:21 Ur Phencyclidine Scrn Negative ng/mL (Negative) 01/24/24 16:21 Ur Amphetamines Screen Negative ng/mL (Negative) 01/24/24 16:21 U Benzodiazepines Scrn Negative ng/mL (Negative) 01/24/24 16:21 Urine Cocaine Screen Negative ng/mL (Negative) 01/24/24 16:21 U Marijuana (THC) Screen Positive ng/mL (Negative) H 01/24/24 16:21 All radiology interpretation(s) finalized by discharge Discharge Plan Discharge Patient Disposition: Home Clinical Impression: Stable angina, Noncompliance with medication regimen, Anxiety Condition: Stable Prescriptions: No Action hydroxyzine pamoate 25 mg capsule 25 mg PO TID PRN (Reason: Itching) (DME) nebulizers Misc See Rx Instructions .ROUTE .MEDSUPPLY Qty: 1 Rx Instructions: As directed (DME) OXYGEN @ 2L PER N/C See Rx Instructions .Route .MEDSUPPLY Qty: 1 0RF Rx Instructions: As directed pantoprazole 40 mg tablet,delayed release (DR/EC) 40 mg PO DAILY Qty: 30 5RF Hold Instructions: Resume on 07/24/22. albuterol sulfate 2.5 mg /3 mL (0.083 %) solution for nebulization 2.5 mg INHALATION Q4H PRN (Reason: Shortness Of Breath) Qty: 180 2RF albuterol sulfate 90 mcg/actuation HFA aerosol inhaler 2 puff inhalation Q6H PRN (Reason: shortness of breath or wheezing) Qty: 8.5 2RF chlorhexidine gluconate [Peridex] 0.12 % mouthwash 15 ml buccal BID Qty: 1500 0RF clonazepam 1 mg tablet 1 mg PO BID Qty: 60 2RF docusate sodium [Colace] 100 mg capsule 100 mg PO DAILY PRN (Reason: Constipation) Qty: 60 2RF isosorbide dinitrate 30 mg tablet 30 mg PO BID Qty: 60 2RF Rx Instructions: allow nitrate-free interval of 12-14 hrs per 24-hr period Probiotic Digestive Care 20 billion cell capsule See Rx Instructions PO .2 times day Qty: 60 2RF Rx Instructions: 20 billion cell PO .2 times day; meclizine 25 mg tablet,chewable 25 mg PO TID PRN (Reason: nausea) Qty: 90 0RF prazosin 1 mg capsule 1 mg PO BEDTIME@2200 Qty: 30 2RF zonisamide 100 mg capsule 100 mg PO TID@07,12,22 Qty: 90 2RF nitroglycerin 0.4 mg tablet, sublingual 0.4 mg sublingual Q5M PRN (Reason: chest pain) 30 Days Qty: 30 3RF Rx Instructions: until response; do not exceed 3 doses per episode carvedilol 3.125 mg tablet 3.125 mg PO BID Brilinta 90 mg tablet 90 mg PO BID Xarelto 2.5 mg tablet 2.5 mg PO BID (DME) FreeStyle Kevin 2 Sensor Kit See Rx Instructions .Route Qty: 2 5RF Rx Instructions: change every 14 days (DME) FreeStyle Kevin 2 [place] Misc See Rx Instructions .Route Qty: 1 0RF Rx Instructions: As directed (DME) pen needle, diabetic 33 gauge x 5/32 needle See Rx Instructions .ROUTE .MEDSUPPLY Qty: 200 5RF Rx Instructions: 4 times daily (DME) ReliOn Prime Test Strips Strip See Rx Instructions .Route Qty: 100 5RF Rx Instructions: 3 times day as needed (DME) lancets Misc See Rx Instructions .ROUTE .MEDSUPPLY Qty: 100 5RF Rx Instructions: three times day as needed Jardiance 25 mg tablet 25 mg PO QAM Qty: 30 0RF olanzapine [Zyprexa] 2.5 mg tablet 2.5 mg PO DAILY Qty: 30 0RF Daliresp 500 mcg tablet 500 mcg PO DAILY@2200 Qty: 30 0RF Crestor 40 mg tablet 40 mg PO DAILY@2200 Qty: 30 0RF valsartan [Diovan] 320 mg tablet 320 mg PO DAILY Qty: 30 0RF venlafaxine [Effexor XR] 75 mg capsule,extended release 24hr 75 mg PO QAM Qty: 30 0RF Linzess 290 mcg capsule 290 mcg PO QAM Qty: 30 0RF insulin degludec [Tresiba FlexTouch U-100] 100 unit/mL (3 mL) insulin pen 90 unit SUBCUT BID Qty: 54 2RF insulin aspart U-100 [Novolog FlexPen U-100 Insulin] 100 unit/mL (3 mL) insulin pen See Rx Instructions SUBCUT TID Qty: 15 2RF Rx Instructions: 110-129=3U,130-150=6U, 151-200=9U, 201-250=12U,251-300=15U,301-350=18U,351-400=21U,>400=24U SUBCUT three times daily; furosemide 20 mg tablet 20 mg PO BID Qty: 60 2RF amlodipine 10 mg tablet 10 mg PO DAILY Qty: 30 0RF multivitamin [Multiple Vitamins] Tablet 1 tab PO DAILY@0700 Hair, Skin, Nails with Biotin 7.5-7.5-1,250 mg-unit-mcg Tablet,Chewable 1 tab PO DAILY@0700 Anusol-HC 2.5 % cream with perineal applicator 1 applic OK QID 10 Days Qty: 30 1RF Rx Instructions: May repeat for another 10 days if no resolution Discharge Orders: Discharge ED (Routine); Ordered 01/24/24 Ordered By: Yosef Benitez Referrals: Pedro Luis Mata, SOCIAL SERVICE TECHNICIAN-C [Primary Care Provider] - Discharge Diet: Cardiac Discharge Activity: Increase activity as tolerated Patient Instructions: Angina (ED), Cannabis Use Disorder (ED), Anxiety (ED) Activity Restrictions/Additional Instructions: You need to take your medications as prescribed by you by your loss prevention/safety district manager is also suggested that you be careful with the use of marijuana as it can cause additional atherosclerotic coronary vascular disease and cause additional issues with your heart. You are instructed to further follow-up with your loss prevention/safety district manager as indicated in next 3 to 5 days in which to return the interim if any of your symptoms persist or worse. Coding Level of Care Code ED [employer] for Kota Neely
[2024-01-24 16:09] LABS: Calcium 9.2 mg/dL (8.5-10.5)
[2024-01-24 16:14] LABS: NT Pro B Type Natriuretic Pept 276 pg/mL (0-125)
[2024-01-24 16:26] LABS: Add Urine Microscopic? NO; Charge for UA Resulting for Rev
[2024-01-24 16:39] LABS: Amphetamines Screen Urine Negative (Negative); Barbiturates Screen Urine Negative (Negative); Benzodiazepines Screen Urine Negative (Negative); Cocaine Screen Urine Negative (Negative); Opiate Screen Urine Negative (Negative); PCP Screen Urine Negative (Negative); THC Screen Urine Positive (Negative)
[2024-01-24 16:42] LABS: Protein Urine Neg (Negative); Urine Appearance Clear (CLEAR); Urine Color Yellow (Yellow); pH Urine 6 (5-7)
[2024-01-24 16:43] LABS: Bilirubin Urine Neg (Negative); Blood Urine Neg (Negative); Glucose Urine UA 4+ (Normal); Ketones Urine Negative (Negative); Leukocyte Esterase Urine Negative (Negative); Nitrate Urine Negative (Negative); Urobilinogen Urine Norm (Negative)
[2024-01-24] MEDS: sodium chloride 0.9% 1,000 ML 999 ML IV (16:47)
--- NOTE | 2024-01-24 17:46 | ECG_ITS ---
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 Measurements Intervals [place] Rate: 99 P: 67 CT: 112 QRS: -35 QRSD: 98 T: 69 QT: 398 QTc: 511 Interpretive Statements SINUS RHYTHM WITH SHORT CT INTERVAL LEFT AXIS DEVIATION [QRS AXIS < -30] Nonspecific ST changes. Compared to ECG 01/24/2024 15:52:28 No significant change Electronically Signed On 01-25-2024 16:15:21 CDT by Nora Bullock M.D. [email or web address]E Complete Home Servicesmethodist olive branch hospitalElite Education Media Groupmercy health springfield [id number]
[2024-01-24 18:00] VITALS: BP 152/77; PULSE 96; RESP 18; O2SAT 99
[2024-01-24 18:29] LABS: Troponin 5 2HR 14.04 ng/L (0-10)
[2024-01-24 18:30] LABS: Troponin 5 2HR Delta -0.96 ABS# (0-10)
[2024-01-24 19:03] VITALS: BP 152/77; PULSE 96; RESP 18; TEMP 36.6; O2SAT 99
== END 2024-01-24 19:04 | disposition home or self-care (01) ==
PROVIDERS: Emergency Provider Emergency Medicine; PCP Nurse Practitioner
DX: F41.9 Anxiety disorder, unspecified (principal); I20.89 Other forms of angina pectoris; Z91.148 Patient's other noncompliance with medication regimen for other reason; Z79.4 Long term (current) use of insulin; Z87.891 Personal history of nicotine dependence; E11.9 Type 2 diabetes mellitus without complications; J44.9 Chronic obstructive pulmonary disease, unspecified; I10 Essential (primary) hypertension; E78.5 Hyperlipidemia, unspecified
CPT/HCPCS: 36415; 71045; 80053; 80306; 81003; 83690; 83880; 84484; 85025; 85610; 93005; 99285; J7030

== ENCOUNTER → 2024-02-18 10:05 | Outpatient (BNVA) | payer MEDICARE, MEDICAID, SELFPAY | PROVIDERS: PCP Nurse Practitioner; Visit Provider Nurse Practitioner Family | DX: I25.118 Atherosclerotic heart disease of native coronary artery with other forms of angina pectoris (principal); I10 Essential (primary) hypertension; Z87.891 Personal history of nicotine dependence | CPT/HCPCS: 99214 ==

== ENCOUNTER 2024-03-12 13:38 | Outpatient (CLI) | payer MEDICARE, MEDICAID, SELFPAY ==
--- NOTE | 2024-03-12 14:15 | USCV_ITS ---
Cori Ramirez Age: 58 Gender: F : 1965 Exam Date: 03/12/2024 14:09 Ordering Phys: Sparkle Hicks Technologist: CT Exam Location: [facility] – [place], [place]_ Indication: BP: 165 / 116 HR: 73 Rhythm: Sinus Technical Quality: Adequate MEASUREMENTS (Male / Female) Normal Values 2D ECHO LVOT Diameter 2.0 cm LV Ejection Fraction MOD 4C 76.4 % LV Ejection Fraction MOD 2C 61.0 % LV Ejection Fraction 2C AL 61.1 % LA Diameter 3.1 cm RA Systolic Volume 4C AL 26.6 ml RA Systolic Volume 4C MOD 27.2 ml LA Sys Volume AL 42.8 cm cubed LA Sys Volume Index AL 21.5 cm cubed/m squared Aorta at Sinotubular Diameter 2.1 cm IVC Diameter 1.9 cm M-MODE LA Ao Ratio MM 1.2 AV Cusp Separation MM 2.0 cm DOPPLER AV Peak Velocity 160.0 cm/s LVOT Peak Velocity 149.0 cm/s AV Area Cont Eq vti 3.2 cm squared AV Area Cont Eq pk 2.9 cm squared MV Peak Velocity 100.0 cm/s MV Area PHT 2.4 cm squared Mitral E to A Ratio 0.7 TV Peak Velocity 228.0 cm/s TR Peak Velocity 240.0 cm/s TR Peak Gradient 23.0 mmHg TV Peak E Velocity 64.0 cm/s Right Atrial Pressure 3.0 mmHg Pulmonary Artery Systolic Pressu 26.0 mmHg PV Peak Velocity 95.0 cm/s FINDINGS Left Ventricle Ventricle is normal size. LV systolic function is normal with EF of 60-65%. No regional wall motion abnormalities are seen. Grade 1 diastolic dysfunction. Right Ventricle The right ventricle is normal in size and function. Right Atrium The right atrium is normal in size. Left Atrium The left atrium is normal in size. Mitral Valve Structurally normal mitral valve. Mild mitral regurgitation Aortic Valve Structurally normal aortic valve . No significant stenosis or regurgitation. Tricuspid Valve Mild tricuspid regurgitation. Pulmonary artery systolic pressure is normal. Pulmonic Valve Not well visualized Pericardium Normal pericardium without effusion. Aorta Normal ascending aorta dimension. IVC The inferior vena cava appears normal. CONCLUSIONS LV systolic function is normal with EF of 60-65% Grade 1 diastolic dysfunction Mild mitral regurgitation Mild tricuspid regurgitation. No comparison studies are available. Galileo Peterson MD (Electronically Signed) Final Date: 15 March 2024 18:52 S
== END 2024-03-12 13:39 | disposition home or self-care (01) ==
LOC: RAD 13:40
PROVIDERS: PCP Nurse Practitioner; Visit Provider Nurse Practitioner Family
DX: I25.118 Atherosclerotic heart disease of native coronary artery with other forms of angina pectoris (principal); I50.30 Unspecified diastolic (congestive) heart failure
CPT/HCPCS: 93306

== ENCOUNTER 2024-03-12 13:39 | Outpatient (CLI) | payer MEDICARE, MEDICAID, SELFPAY ==
--- NOTE | 2024-03-12 13:45 | USCV_ITS ---
AshleyCori Age: 58 Gender: F : 1965 Exam Date: 03/12/2024 13:47 Ordering Phys: Sparkle Hicks Technologist: CT Exam Location: [facility] – [place]_ Indication: post hrt cath 01-05-24 Risk Factors: Previous Vascular Surgery: Right BP: / Left BP: / RIGHT LEFT PSV PSV (cm/s) (cm/s) Waveform Waveform 82.0 Subclavian Proximal 98.0 Axillary 104.0 Brachial Mid 91.0 Radial Proximal 107.0 Radial at Wrist 62.0 Ulnar Proximal 87.3 Ulnar at Wrist FINDINGS normal us no psuedo identified CONCLUSIONS RIGHT upper extremity arteries are patent No pseudoaneursym at the catheter site in the arm Petar Moss MD (Electronically Signed) Final Date: 12 March 2024 16:34 S
== END 2024-03-12 13:40 | disposition home or self-care (01) ==
LOC: RAD 13:40
PROVIDERS: PCP Nurse Practitioner; Visit Provider Nurse Practitioner Family
DX: I25.118 Atherosclerotic heart disease of native coronary artery with other forms of angina pectoris (principal)
CPT/HCPCS: 93931

== ENCOUNTER → 2024-03-24 13:31 | Outpatient (BNVA) | payer MEDICARE, MEDICAID, SELFPAY | PROVIDERS: PCP Nurse Practitioner; Visit Provider Nurse Practitioner | DX: E11.9 Type 2 diabetes mellitus without complications (principal) | CPT/HCPCS: 80053; 80061; 81000; 83036 ==

== ENCOUNTER → 2024-04-22 14:58 | Outpatient (BNVA) | payer MEDICARE, MEDICAID, SELFPAY | PROVIDERS: PCP Nurse Practitioner; Visit Provider Internal Medicine Cardiovascular Disease | DX: R07.9 Chest pain, unspecified (principal); I49.8 Other specified cardiac arrhythmias | CPT/HCPCS: 93005; 99215 ==